=== PATIENT | male | born 1985 | race Caucasian/White ===

== ENCOUNTER 2016-10-13 17:25 | Emergency (ER) | payer OTHER ==
[2016-10-13] MEDS ORDERED: NS 1,000 ML IV ONE (17:45)
[2016-10-13 18:08] VITALS: BP 126/82
[2016-10-13 18:24] LABS: BASO # 0.1 K/mm3 (0.0-0.2); BASO % 0.5 % (0.0-1.0); EOS # 0.3 K/mm3 (0.0-0.50); EOS % 1.5 % (0.0-3.0); LARGE UNSTAINED CELL # 0.2 K/mm3 (0.0-0.4); LARGE UNSTAINED CELL % 1.2 % (0.0-4.0); LYMPH # 2.6 K/mm3 (1.5-4.5); LYMPH % 13.6 % (24.0-44.0); MEAN CORPUSCULAR HEMOGLOBIN 32.8 pg (27.0-33.0); MEAN CORPUSCULAR HGB CONC 34.8 g/dl (32.0-36.5); MEAN CORPUSCULAR VOLUME 94.3 fl (80.0-96.0); MONO % 5.5 % (0.0-5.0); NEUTROPHILS # 13.5 K/mm3 (1.8-7.7); NEUTROPHILS % 77.6 % (36.0-66.0); PLATELET COUNT, AUTOMATED 359 k/mm3 (150-450); RED CELL DISTRIBUTION WIDTH 12.2 % (11.5-14.5); VENOUS BASE EXCESS 4.2 (-2.0-2.0); VENOUS O2 SATURATION 95.3 % (60.0-80.0); VENOUS PARTIAL PRESSURE CO2 19.1 mmHg (38.0-50.0); VENOUS PARTIAL PRESSURE O2 58.7 mmHg (30.0-50.0); VENOUS STANDARD HCO3 28.1 MEQ/L; VENOUS TOTAL CO2 21.8 MEQ/L (24.0-28.0); WHITE BLOOD COUNT 17.4 K/mm3 (4.0-10.0)
[2016-10-13 18:46] LABS: ALBUMIN 4.5 GM/DL (3.2-5.2); ALBUMIN/GLOBULIN RATIO 1.32 (1.00-1.93); ALKALINE PHOSPHATASE 83 U/L (45-117); ALT/SGPT 17 U/L (12-78); ANION GAP 14 MEQ/L (8-16); AST/SGOT 17 U/L (15-37); BILIRUBIN,DIRECT 0.3 MG/DL (0.0-0.2); BILIRUBIN,TOTAL 1.7 MG/DL (0.2-1.0); BLOOD UREA NITROGEN 8 MG/DL (7-18); CALCIUM LEVEL 10.4 MG/DL (8.5-10.1); CARBON DIOXIDE LEVEL 21 MEQ/L (21-32); CHLORIDE LEVEL 105 MEQ/L (98-107); CREATININE FOR GFR 1.27 MG/DL (0.70-1.30); GLOMERULAR FILTRATION RATE > 60.0 (>60); GLUCOSE, FASTING 101 MG/DL (70-105); POTASSIUM SERUM 3.3 MEQ/L (3.5-5.1); SODIUM LEVEL 140 MEQ/L (136-145); TOTAL PROTEIN 7.9 GM/DL (6.4-8.2)
[2016-10-13] MEDS ORDERED: NS 2,250 ML in APPROPRIATE DILUENT 1 EA IV ONE (19:45)
[2016-10-13] MEDS ORDERED: MORPHINE 4 MG/ML 1ML SYRINGE IV ONE (19:45)
[2016-10-13] MEDS ORDERED: ISOVUE-370 76% 100ML VIAL (Q9967) As Ordered ONE (20:00)
--- NOTE | 2016-10-13 20:40 | REPUSA ---
CT of the abdomen and pelvis with contrast Clinical statement: Pain. Technique: Multiple axial CT images were obtained from the base of the lungs through the floor of the pelvis utilizing 5 mm axial slices after administration of nonionic intravenous contrast. Coronal an d sagittal reconstructions were also obtained. Comparison: 03/14/2015. Findings: Chest: The visualized lung bases are clear. Abdomen: The liver, spleen, pancreas, kidneys, gallbladder, and adrenal glands are unremarkable. The aorta is within normal limits. There is no evidence of abdominal lymphadenopathy or ascites. Pelvis: The bowel is unremarkable, with no obstructive or inflammatory changes. The appendix is parker l. The urinary bladder is within normal limits. The other pelvic structures appear grossly intact. Th ere is no evidence of pelvic lymphadenopathy or ascites. Bones: There are no suspicious osseous abnormalities seen. Impression: Unremarkable CT examination of the abdomen and pelvis.
--- NOTE | 2016-10-14 07:37 | REP ---
ABDOMINAL SERIES: Supine and erect views of the abdomen demonstrate no free air and no compelling evidence for obstruction. The air is scattered throughout the GI tract in a nonspecific pattern. I do not see a significantly dilated small bowel loops. No abnormal calcifications are seen. An accompanying view of the chest demonstrates no acute infiltrate. IMPRESSION: Nonspecific bowel gas pattern. No definite free air and no compelling evidence for obstruction. Signed by Morales Faulkner MD 10/14/2016 01:10 P
== END 2016-10-13 21:54 | disposition home or self-care (01) ==
LOC: EDBD 17:25 → M ED 17:25
DX: R10.9 Unspecified abdominal pain (principal); R05 Cough; F17.210 Nicotine dependence, cigarettes, uncomplicated; F10.10 Alcohol abuse, uncomplicated; F14.10 Cocaine abuse, uncomplicated
CPT/HCPCS: 36415; 74022; 74177; 80048; 80076; 82803; 83605; 83690; 85025; 96361; 96374; 99283; Q9967

== ENCOUNTER 2017-01-13 21:00 | Emergency (ER) | payer MEDICAID, OTHER, SELFPAY ==
[~2017-01-13] VITALS: Ht 170.2 cm; Wt 68.0 kg
[2017-01-13 21:52] LABS: MEAN CORPUSCULAR HEMOGLOBIN 33.3 pg (27.0-33.0); MEAN CORPUSCULAR HGB CONC 35.3 g/dl (32.0-36.5); MEAN CORPUSCULAR VOLUME 94.2 fl (80.0-96.0); PLATELET COUNT, AUTOMATED 317 10^3/uL (150-450); RED CELL DISTRIBUTION WIDTH 12.5 % (11.5-14.5); WHITE BLOOD COUNT 7.9 10^3/uL (4.0-10.0)
[2017-01-13 22:20] LABS: METHADONE URINE NEGATIVE (NEGATIVE)
[2017-01-13 22:25] LABS: ALBUMIN 4.1 GM/DL (3.2-5.2); ALBUMIN/GLOBULIN RATIO 1.08 (1.00-1.93); ALKALINE PHOSPHATASE 85 U/L (45-117); ALT/SGPT 22 U/L (12-78); ANION GAP 6 MEQ/L (8-16); AST/SGOT 21 U/L (15-37); BILIRUBIN,DIRECT < 0.1 MG/DL (0.0-0.2); BILIRUBIN,TOTAL 0.4 MG/DL (0.2-1.0); BLOOD UREA NITROGEN 8 MG/DL (7-18); CALCIUM LEVEL 9.1 MG/DL (8.5-10.1); CARBON DIOXIDE LEVEL 29 MEQ/L (21-32); CHLORIDE LEVEL 106 MEQ/L (98-107); CREATININE FOR GFR 0.96 MG/DL (0.70-1.30); GLOMERULAR FILTRATION RATE > 60.0 (>60); GLUCOSE, FASTING 100 MG/DL (70-105); POTASSIUM SERUM 3.8 MEQ/L (3.5-5.1); SODIUM LEVEL 141 MEQ/L (136-145); TOTAL PROTEIN 7.9 GM/DL (6.4-8.2)
[2017-01-13] MEDS ORDERED: LORazepam 1 MG TAB PO STA (22:29)
[2017-01-13] MEDS ORDERED: LORazepam 2 MG/ML VIAL (J2060) IM STA (22:50)
[2017-01-13] MEDS ORDERED: HALOPERIDOL 5 MG/ML VIAL (J1630) IM STA (23:55)
[2017-01-14] MEDS ORDERED: NICOTINE 21MG/24HR 1 EA TRANSDERMAL TD ONE (01:00)
--- NOTE | 2017-01-14 09:35 | ECGEPIP ---
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
[2017-01-14 10:03] VITALS: BP 128/85
== END 2017-01-14 10:07 | disposition home or self-care (01) ==
LOC: M ED 21:00
DX: R45.851 Suicidal ideations (principal); T51.0X2A Toxic effect of ethanol, intentional self-harm, initial encounter; Y92.9 Unspecified place or not applicable; Y93.9 Activity, unspecified; R00.0 Tachycardia, unspecified; F32.9 Major depressive disorder, single episode, unspecified; F17.200 Nicotine dependence, unspecified, uncomplicated; F12.10 Cannabis abuse, uncomplicated
CPT/HCPCS: 80048; 80076; 80307; 84443; 85027; 93005; 96374; 96375; 99285; G0480; J1630; J2060

== ENCOUNTER 2017-02-06 19:32 | Emergency (ER) | payer MEDICAID ==
[~2017-02-06 19:32] MED LIST: HALOPERIDOL 5 MG/ML VIAL (J1630) As Ordered ONE
[2017-02-06] MEDS ORDERED: diphenhydrAMINE INJ 50MG/ML VIAL (J1200) As Ordered ONE (19:33)
[2017-02-06] MEDS ORDERED: HALOPERIDOL 5 MG/ML VIAL (J1630) IM STA (19:37)
[2017-02-06] MEDS ORDERED: diphenhydrAMINE INJ 50MG/ML VIAL (J1200) IM ONE (19:45)
[2017-02-06 21:01] LABS: MEAN CORPUSCULAR HEMOGLOBIN 33.2 pg (27.0-33.0); MEAN CORPUSCULAR HGB CONC 34.3 g/dl (32.0-36.5); MEAN CORPUSCULAR VOLUME 96.7 fl (80.0-96.0); PLATELET COUNT, AUTOMATED 380 10^3/uL (150-450); RED CELL DISTRIBUTION WIDTH 11.9 % (11.5-14.5)
[2017-02-06 21:25] LABS: METHADONE URINE NEGATIVE (NEGATIVE)
[2017-02-06 21:33] LABS: ALBUMIN 3.9 GM/DL (3.2-5.2); ALBUMIN/GLOBULIN RATIO 1.05 (1.00-1.93); ALKALINE PHOSPHATASE 91 U/L (45-117); ALT/SGPT 24 U/L (12-78); ANION GAP 10 MEQ/L (8-16); AST/SGOT 25 U/L (7-37); BILIRUBIN,DIRECT 0.1 MG/DL (0.0-0.2); BILIRUBIN,TOTAL 0.3 MG/DL (0.2-1.0); BLOOD UREA NITROGEN 8 MG/DL (7-18); CALCIUM LEVEL 8.7 MG/DL (8.5-10.1); CARBON DIOXIDE LEVEL 25 MEQ/L (21-32); CHLORIDE LEVEL 108 MEQ/L (98-107); CREATININE FOR GFR 0.78 MG/DL (0.70-1.30); GLOMERULAR FILTRATION RATE > 60.0 (>60); GLUCOSE, FASTING 102 MG/DL (70-105); POTASSIUM SERUM 3.9 MEQ/L (3.5-5.1); SODIUM LEVEL 143 MEQ/L (136-145); TOTAL PROTEIN 7.6 GM/DL (6.4-8.2)
[2017-02-07 08:26] VITALS: BP 137/107
== END 2017-02-07 08:29 | disposition home or self-care (01) ==
LOC: M ED 19:32
DX: F10.129 Alcohol abuse with intoxication, unspecified (principal); F91.9 Conduct disorder, unspecified
CPT/HCPCS: 80048; 80076; 80307; 82550; 84443; 85027; 96372; 99285; G0480; J1200; J1630

== ENCOUNTER 2017-07-14 07:26 | Emergency (ER) | payer MEDICAID ==
[2017-07-14] MEDS: NORCO, ANEXSIA 5/325MG TABLET (HYDROcodone/ACETAMINOPHEN) PO (07:46)
== END 2017-07-14 08:00 | disposition home or self-care (01) ==
LOC: M ED 07:26
DX: K02.9 Dental caries, unspecified (principal); S02.5XXA Fracture of tooth (traumatic), initial encounter for closed fracture; X58.XXXA Exposure to other specified factors, initial encounter; Y92.89 Other specified places as the place of occurrence of the external cause; F17.200 Nicotine dependence, unspecified, uncomplicated; Z88.0 Allergy status to penicillin; Z79.899 Other long term (current) drug therapy
CPT/HCPCS: 99282

== ENCOUNTER 2017-09-20 12:10 | Emergency (ER) | payer OTHER, MEDICAID | END 2017-09-20 13:28 | disposition home or self-care (01) | LOC: M ED 12:10 | DX: K04.7 Periapical abscess without sinus (principal); R68.84 Jaw pain; K08.89 Other specified disorders of teeth and supporting structures; Z72.0 Tobacco use; Z79.899 Other long term (current) drug therapy; Z88.0 Allergy status to penicillin | CPT/HCPCS: 99282 ==

== ENCOUNTER 2017-10-14 12:36 | Emergency (ER) | payer OTHER, MEDICAID ==
[2017-10-14] MEDS: KETOROLAC 60 MG/2 ML VIAL (J1885) IM (15:11)
[2017-10-14] MEDS: ACETAMINOPHEN 325 MG TAB PO (15:11)
== END 2017-10-14 15:17 | disposition home or self-care (01) ==
LOC: M ED 12:36
DX: G89.18 Other acute postprocedural pain (principal); K08.409 Partial loss of teeth, unspecified cause, unspecified class; Z79.899 Other long term (current) drug therapy; Z79.2 Long term (current) use of antibiotics
CPT/HCPCS: J1885

== ENCOUNTER 2017-10-25 09:13 | Emergency (ER) | payer OTHER | END 2017-10-25 09:56 | disposition home or self-care (01) | LOC: M ED 09:13 | DX: K04.7 Periapical abscess without sinus (principal); K02.9 Dental caries, unspecified; K08.89 Other specified disorders of teeth and supporting structures; S02.5XXA Fracture of tooth (traumatic), initial encounter for closed fracture; X58.XXXA Exposure to other specified factors, initial encounter; Y92.9 Unspecified place or not applicable; Y93.9 Activity, unspecified; Y99.9 Unspecified external cause status; Z72.0 Tobacco use; I10 Essential (primary) hypertension; F90.9 Attention-deficit hyperactivity disorder, unspecified type; Z79.899 Other long term (current) drug therapy; Z88.0 Allergy status to penicillin | CPT/HCPCS: 99282 ==

== ENCOUNTER 2018-01-03 15:07 | Emergency (ER) | payer OTHER ==
[2018-01-03] MEDS ORDERED: POTASSIUM CHLORIDE 10 MEQ SR TABLET PO (16:15)
[2018-01-03 16:34] LABS: INFLUENZA A AMPLIFICATION NEGATIVE (NEGATIVE); INFLUENZA B AMPLIFICATION NEGATIVE (NEGATIVE)
[2018-01-03] MEDS: ALBUTEROL SULFATE 2.5 MG/0.5 ML INH NEB SOLN NEB (16:46)
== END 2018-01-03 17:17 | disposition home or self-care (01) ==
LOC: M ED 15:07
DX: J06.9 Acute upper respiratory infection, unspecified (principal); R05 Cough; F17.200 Nicotine dependence, unspecified, uncomplicated
CPT/HCPCS: 94640

== ENCOUNTER 2018-05-17 09:41 | Emergency (ER) | payer OTHER, SELFPAY ==
[~2018-05-17] VITALS: Ht 170.2 cm; Wt 67.7 kg
[~2018-05-17 09:41] MED LIST changes: +ADDE15CA3 PO; +BACT800T5 PO; +CETI10TA PO; +CLEO300C2 PO; +CLIN150C14 PO; +FLON1SPR NARES; -HALOPERIDOL 5 MG/ML VIAL (J1630) As Ordered ONE; +IBUP80TA PO; +MAGICMW MT; +MAPA500T2; +METH1TAB13; +MUCI1TAB18 PO; +NETI1KIT; +NORCOTAB PO; +TRAZ-163 PO; +wellbutrin PO
--- NOTE | 2018-05-17 10:57 | REP ---
Thoracic spine three views: Comparison is 02/16/2005. Vertebral body heights, interspacing alignment are normal. There are no compression deformities or listhesis. The pedicles are unremarkable. Impression: Negative thoracic spine. No interval change. Electronically Signed by Morales Tarango MD 05/17/2018 10:47 A
[2018-05-17] MEDS ORDERED: KETOROLAC 60 MG/2 ML VIAL (J1885) IM ONE (11:00)
[2018-05-17] MEDS ORDERED: CYCLOBENZAPRINE 10 MG TAB PO ONE (11:00)
[2018-05-17] MEDS ORDERED: CYCL10TA PO (11:21)
[2018-05-17] MEDS ORDERED: NAPR-885 PO (11:21)
[2018-05-17 11:29] VITALS: BP 120/71
== END 2018-05-17 11:31 | disposition home or self-care (01) ==
LOC: M ED 09:41
DX: M62.838 Other muscle spasm (principal); I10 Essential (primary) hypertension; F90.9 Attention-deficit hyperactivity disorder, unspecified type; F17.200 Nicotine dependence, unspecified, uncomplicated; Z88.0 Allergy status to penicillin
CPT/HCPCS: 72072; 96372; 99283; J1885

== ENCOUNTER 2019-02-18 21:28 | Emergency (ER) | payer MEDICAID, OTHER ==
[~2019-02-18] VITALS: Ht 167.6 cm; Wt 71.2 kg
[~2019-02-18 21:28] MED LIST changes: +CYCL10TA PO; +HYDR-3715 PO; +NAPR-885 PO; -NORCOTAB PO
[2019-02-18] MEDS ORDERED: SERO1TAB PO (21:41)
[2019-02-18 21:43] VITALS: BP 141/87
[2019-02-18] MEDS ORDERED: TETANUS/DIPHTHERIA TOX ADSORB ADULT 0.5ML SYR/VIAL (90714) IM ONE (21:45)
[2019-02-18 22:07] LABS: BASO # 0.1 10^3/uL (0.0-0.2); BASO % 0.8 % (0.0-1.0); EOS # 0.2 10^3/uL (0.0-0.5); EOS % 1.4 % (0.0-3.0); HEMATOCRIT 48.3 % (42.0-52.0); HEMOGLOBIN 15.7 g/dl (13.5-17.5); LYMPH # 3.5 10^3/uL (1.5-5.0); LYMPH % 25.6 % (24.0-44.0); MEAN CORPUSCULAR HEMOGLOBIN 31.3 pg (27.0-33.0); MEAN CORPUSCULAR HGB CONC 32.5 g/dl (32.0-36.5); MEAN CORPUSCULAR VOLUME 96.2 fl (80.0-96.0); MONO # 1.3 10^3/uL (0.0-0.8); MONO % 9.3 % (0.0-5.0); NEUTROPHILS # 8.4 10^3/uL (1.5-8.5); NEUTROPHILS % 62.6 % (36.0-66.0); PLATELET COUNT, AUTOMATED 462 10^3/uL (150-450); RED BLOOD COUNT 5.02 10^6/uL (4.30-6.10); WHITE BLOOD COUNT 13.5 10^3/uL (4.0-10.0)
[2019-02-18] MEDS ORDERED: ISOVUE-370 76% 100ML VIAL (Q9967) As Ordered ONE (22:07)
[2019-02-18 22:19] LABS: INR 1.02; PROTHROMBIN TIME 13.2 SECONDS (11.8-14.0)
[2019-02-18 22:20] LABS: PARTIAL THROMBOPLASTIN TIME 27.7 SECONDS (25.0-38.4)
[2019-02-18 22:30] LABS: BLOOD UREA NITROGEN 7 MG/DL (7-18); CALCIUM LEVEL 8.7 MG/DL (8.5-10.1); CARBON DIOXIDE LEVEL 32 MEQ/L (21-32); CHLORIDE LEVEL 113 MEQ/L (98-107); CREATININE FOR GFR 1.08 MG/DL (0.70-1.30); ETHYL ALCOHOL (ETHANOL) 0.292 % (0.000-0.010); GLOMERULAR FILTRATION RATE > 60.0 (>60); GLUCOSE, FASTING 90 MG/DL (70-100); POTASSIUM SERUM 3.9 MEQ/L (3.5-5.1); SODIUM LEVEL 148 MEQ/L (136-145)
--- NOTE | 2019-02-19 06:37 | REP ---
Clinical: Trauma. Comparison: 02/25/2016 . Findings: A nasal bone fracture is identified with overlying soft tissue swelling. The ventricles, sulci, and cisterns are normal in position and appearance. Faulkner-white differentiation is maintained. No acute intracranial hemorrhage, mass/mass effect, pathology or trauma/injury. No evidence for acute infarction. No extra-axial fluid collection. Calvarium is intact. Paranasal sinuses and mastoid air cells are clear. Impression: Nasal bone fracture with overlying soft tissue swelling. No evidence for acute intracranial pathology or trauma/injury. Electronically Signed by Bob Lopez MD 02/19/2019 06:29 A
--- NOTE | 2019-02-19 06:41 | REP ---
Clinical: Trauma. Technique: Axial contrast enhanced images from the skull base to the thoracic inlet with coronal and sagittal re-formations using 100 ml Isovue 370 intravenous contrast material. Findings: Images demonstrate nasal bone fractures angulation towards the right side of the face and associated overlying soft tissue swelling. Visualized sinuses are relatively clear. Incidental mucoperiosteal changes and mucocele noted in the right maxillary sinus. Mastoid air cells are clear. The soft tissues through the oropharynx, retropharyngeal space, and hypopharynx are symmetric and normal. There is no evidence for trauma within the neck. There is no mass identified. There is no tonsillar or adenoidal enlargement. There is no abscess identified. The airway is normal. There is no cervical adenopathy. The thyroid is normal. The submandibular and parotid glands are normal. There is no osseous lesion. The lung apices are normal. Impression: 1. Nasal bone fractures identified with angulation to the right and overlying soft tissue swelling. 2. Otherwise normal contrast enhanced CT of the neck. Electronically Signed by Bob Lopez MD 02/19/2019 06:32 A
--- NOTE | 2019-02-19 06:43 | REP ---
Clinical: Trauma. Technique: Axial noncontrast images through the facial bones to include the mandible with coronal and sagittal re-formations. Findings: Bilateral nasal bone fractures are identified with deviation towards the right side and associated overlying soft tissue swelling. Mild chronic sinus disease involving the maxillary sinuses noted including 1 cm right mucocele. Remainder examination appears normal. The osseous structures are otherwise intact and there is no other acute fracture identified. The sinuses and mastoid air cells are all well aerated and clear without fluid level to suggest occult trauma. The bilateral orbits including the globes and intraconal contents appear symmetric and normal. Impression: Nasal bone fractures with deviation to the right. Mild sinus disease. Electronically Signed by Bob Lopez MD 02/19/2019 06:35 A
--- NOTE | 2019-02-19 06:44 | REP ---
Clinical: Trauma. Technique: Axial images from the skull base to the thoracic inlet with coronal and sagittal re-formations. Findings: Mild reversal of normal lordosis is appreciated along with mild/moderate degenerative changes primarily noted at C5-6, C4-5, and C6-7. There is no evidence for acute fracture / compression injury or subluxation. Spinal canal is patent. Posterior elements and spinous processes are intact. Surrounding soft tissues are unremarkable. Impression: Degenerative changes centered at C5-6. No evidence for acute trauma/injury. Electronically Signed by Bob Lopez MD 02/19/2019 06:36 A
[2019-02-19] MEDS ORDERED: BACT800T5 PO (11:25)
== END 2019-02-18 22:43 | disposition home or self-care (01) ==
LOC: M ED 21:28
DX: S01.81XA Laceration without foreign body of other part of head, initial encounter (principal); S02.2XXA Fracture of nasal bones, initial encounter for closed fracture; F10.129 Alcohol abuse with intoxication, unspecified; X58.XXXA Exposure to other specified factors, initial encounter; Y92.9 Unspecified place or not applicable; Y93.9 Activity, unspecified; Y99.9 Unspecified external cause status; F90.9 Attention-deficit hyperactivity disorder, unspecified type; F17.200 Nicotine dependence, unspecified, uncomplicated; M50.322 Other cervical disc degeneration at C5-C6 level; Z79.899 Other long term (current) drug therapy; Z88.0 Allergy status to penicillin; Z53.21 Procedure and treatment not carried out due to patient leaving prior to being seen by health care provider
CPT/HCPCS: 70450; 70486; 70491; 72125; 80048; 85025; 85610; 85730; 90471; 90714; 99284; G0480; Q9967

== ENCOUNTER 2019-02-19 09:04 | Emergency (ER) | payer MEDICAID, OTHER ==
[~2019-02-19] VITALS: Ht 167.6 cm; Wt 71.4 kg
[~2019-02-19 09:04] MED LIST changes: +SERO1TAB PO
[2019-02-19] MEDS ORDERED: ADACEL/BOOSTRIX VACCINE (DIPHTH/PERTUSS/ACELL/TETANUS)0.5ML SYR (90715) IM ONE (09:30)
[2019-02-19] MEDS ORDERED: ACETAMINOPHEN 500 MG TAB PO ONE (09:45)
[2019-02-19] MEDS ORDERED: BACT800T5 PO (11:25)
[2019-02-19 11:38] VITALS: BP 148/70
== END 2019-02-19 11:39 | disposition home or self-care (01) ==
LOC: M ED 09:04
DX: S02.2XXA Fracture of nasal bones, initial encounter for closed fracture (principal); S06.0X0A Concussion without loss of consciousness, initial encounter; W22.01XA Walked into wall, initial encounter; Y92.89 Other specified places as the place of occurrence of the external cause; Y93.9 Activity, unspecified; Y99.9 Unspecified external cause status; I10 Essential (primary) hypertension; F17.200 Nicotine dependence, unspecified, uncomplicated; Z79.899 Other long term (current) drug therapy; Z88.0 Allergy status to penicillin

== ENCOUNTER → 2019-03-23 | Outpatient (CLI) | payer OTHER, SELFPAY | LOC: M OUTALCOH 08:04 | PROVIDERS: ATTEND Psychiatry & Neurology Psychiatry | DX: F15.20 Other stimulant dependence, uncomplicated (principal); F12.20 Cannabis dependence, uncomplicated ==

== ENCOUNTER 2019-04-22 10:00 | Outpatient (RCR) | payer OTHER ==
[~2019-04-22 10:00] MED LIST changes: -TRAZ-163 PO; +TRAZ-257 PO
== END 2019-04-23 ==
LOC: M OUTALCOH 10:00
PROVIDERS: ATTEND Psychiatry & Neurology Psychiatry
DX: F15.20 Other stimulant dependence, uncomplicated (principal); F12.10 Cannabis abuse, uncomplicated

== ENCOUNTER 2019-05-19 15:00 | Outpatient (RCR) | payer OTHER | END 2019-05-22 | LOC: M OUTALCOH 15:00 | PROVIDERS: ATTEND Psychiatry & Neurology Addiction Medicine | DX: F15.20 Other stimulant dependence, uncomplicated (principal); F12.10 Cannabis abuse, uncomplicated ==

== ENCOUNTER 2019-06-15 14:00 | Outpatient (RCR) | payer MEDICAID, OTHER | END 2019-06-22 | LOC: M OUTALCOH 14:00 | PROVIDERS: ATTEND Psychiatry & Neurology Addiction Medicine | DX: F15.20 Other stimulant dependence, uncomplicated (principal); F12.10 Cannabis abuse, uncomplicated ==

== ENCOUNTER 2019-10-02 19:19 | Emergency (ER) | payer MEDICAID, OTHER ==
[~2019-10-02 19:19] MED LIST changes: +CYCL-707 PO; -CYCL10TA PO
[2019-10-02] MEDS: LORazepam 2 MG/ML VIAL IV STA ×2 (19:23→19:45)
[2019-10-02] MEDS ORDERED: NS 1,000 ML IV ONE ×2 (19:30→23:45)
[2019-10-02 19:38] LABS: HEMATOCRIT 46.6 % (42.0-52.0); HEMOGLOBIN 15.8 g/dl (13.5-17.5); MEAN CORPUSCULAR HEMOGLOBIN 30.8 pg (27.0-33.0); MEAN CORPUSCULAR HGB CONC 33.9 g/dl (32.0-36.5); MEAN CORPUSCULAR VOLUME 90.8 fl (80.0-96.0); PLATELET COUNT, AUTOMATED 358 10^3/uL (150-450); RED BLOOD COUNT 5.13 10^6/uL (4.30-6.10); WHITE BLOOD COUNT 12.1 10^3/uL (4.0-10.0)
[2019-10-02] MEDS ORDERED: LORazepam 2 MG/ML VIAL As Ordered ONE (19:42)
[2019-10-02 20:11] LABS: ACETAMINOPHEN LEVEL < 2.0 UG/ML (10.0-30.0); ALBUMIN 4.2 GM/DL (3.2-5.2); ALT/SGPT 31 U/L (12-78); BILIRUBIN,DIRECT 0.4 MG/DL (0.0-0.2); BILIRUBIN,TOTAL 1.6 MG/DL (0.2-1.0); BLOOD UREA NITROGEN 18 MG/DL (7-18); CARBON DIOXIDE LEVEL 28 MEQ/L (21-32); CHLORIDE LEVEL 104 MEQ/L (98-107); CREATININE FOR GFR 1.16 MG/DL (0.70-1.30); ETHYL ALCOHOL (ETHANOL) < 0.003 % (0.000-0.010); GLOMERULAR FILTRATION RATE > 60.0 (>60); GLUCOSE, FASTING 97 MG/DL (70-100); POTASSIUM SERUM 3.4 MEQ/L (3.5-5.1); SALICYLATE LEVEL 2.5 MG/DL (5.0-30.0); SODIUM LEVEL 141 MEQ/L (136-145); THYROID STIMULATING HORMONE 0.545 uIU/ML (0.358-3.740); TOTAL PROTEIN 7.9 GM/DL (6.4-8.2)
[2019-10-02 20:21] LABS: AMPHETAMINES LEVEL URINE POSITIVE (NEGATIVE); BARBITURATES URINE NEGATIVE (NEGATIVE); BENZODIAZEPINES URINE NEGATIVE (NEGATIVE); CANNABINOIDS URINE POSITIVE (NEGATIVE); COCAINE METABOLITE URINE NEGATIVE (NEGATIVE); METHADONE URINE NEGATIVE (NEGATIVE); OPIATES URINE NEGATIVE (NEGATIVE); PHENCYCLIDINE URINE NEGATIVE (NEGATIVE)
[2019-10-03 06:30] VITALS: BP 113/81
== END 2019-10-03 06:57 | disposition home or self-care (01) ==
LOC: M ED 19:19
DX: F15.20 Other stimulant dependence, uncomplicated (principal); Z72.0 Tobacco use; Z79.899 Other long term (current) drug therapy; Z88.0 Allergy status to penicillin
CPT/HCPCS: 51701; 80048; 80076; 80307; 84443; 85027; 96360; 96361; 99285; G0480

== ENCOUNTER 2019-11-16 11:25 | Emergency (ER) | payer OTHER ==
[~2019-11-16] VITALS: Ht 167.6 cm; Wt 64.1 kg
[2019-11-16 11:26] VITALS: BP 103/70
[2019-11-16] MEDS ORDERED: ALBUTEROL 90 MCG/ACT 8GM HFA INHALER INH ONE (12:30)
[2019-11-16 12:55] LABS: BASO # 0.1 10^3/uL (0.0-0.2); BASO % 0.5 % (0.0-1.0); EOS # 0.1 10^3/uL (0.0-0.5); EOS % 1.3 % (0.0-3.0); HEMATOCRIT 48.7 % (42.0-52.0); HEMOGLOBIN 16.7 g/dl (13.5-17.5); LYMPH # 2.6 10^3/uL (1.5-5.0); LYMPH % 27.6 % (24.0-44.0); MEAN CORPUSCULAR HEMOGLOBIN 32.2 pg (27.0-33.0); MEAN CORPUSCULAR HGB CONC 34.3 g/dl (32.0-36.5); MONO # 1.2 10^3/uL (0.0-0.8); MONO % 12.8 % (0.0-5.0); NEUTROPHILS # 5.3 10^3/uL (1.5-8.5); NEUTROPHILS % 57.6 % (36.0-66.0); PLATELET COUNT, AUTOMATED 446 10^3/uL (150-450); RED BLOOD COUNT 5.18 10^6/uL (4.30-6.10); WHITE BLOOD COUNT 9.2 10^3/uL (4.0-10.0)
[2019-11-16 13:30] LABS: ALBUMIN 4.2 GM/DL (3.2-5.2); BILIRUBIN,DIRECT 0.2 MG/DL (0.0-0.2); BILIRUBIN,TOTAL 0.7 MG/DL (0.2-1.0); TOTAL PROTEIN 7.9 GM/DL (6.4-8.2)
--- NOTE | 2019-12-05 17:27 | ECGEPIP ---
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
== END 2019-11-16 13:55 | disposition left against medical advice (07) ==
LOC: M ED 11:25
DX: R06.02 Shortness of breath (principal); Z53.21 Procedure and treatment not carried out due to patient leaving prior to being seen by health care provider; I10 Essential (primary) hypertension; F90.9 Attention-deficit hyperactivity disorder, unspecified type; F17.200 Nicotine dependence, unspecified, uncomplicated; F12.10 Cannabis abuse, uncomplicated; Z88.0 Allergy status to penicillin

== ENCOUNTER 2020-02-15 10:46 | Emergency (ER) | payer OTHER ==
[~2020-02-15] VITALS: Ht 167.6 cm; Wt 65.1 kg
[2020-02-15 10:47] VITALS: BP 119/77
[2020-02-15] MEDS ORDERED: PEPC10TA6 PO (11:39)
[2020-02-15] MEDS ORDERED: TUMS500C PO (11:40)
[2020-02-15] MEDS ORDERED: LIDOCAINE 2% W/ EPINEPHRINE 1.7 ML DENTAL INJ SM ONE (12:15)
[2020-02-15 12:35] LABS: BASO # 0.1 10^3/uL (0.0-0.2); BASO % 0.8 % (0.0-1.0); EOS # 0.3 10^3/uL (0.0-0.5); EOS % 3.6 % (0.0-3.0); HEMATOCRIT 43.8 % (42.0-52.0); HEMOGLOBIN 14.5 g/dl (13.5-17.5); LYMPH # 2.5 10^3/uL (1.5-5.0); LYMPH % 28.7 % (24.0-44.0); MEAN CORPUSCULAR HEMOGLOBIN 30.8 pg (27.0-33.0); MEAN CORPUSCULAR HGB CONC 33.1 g/dl (32.0-36.5); MONO # 0.9 10^3/uL (0.0-0.8); MONO % 10.9 % (0.0-5.0); NEUTROPHILS # 4.8 10^3/uL (1.5-8.5); NEUTROPHILS % 55.8 % (36.0-66.0); PLATELET COUNT, AUTOMATED 337 10^3/uL (150-450); RED BLOOD COUNT 4.71 10^6/uL (4.30-6.10); WHITE BLOOD COUNT 8.6 10^3/uL (4.0-10.0)
[2020-02-15] MEDS ORDERED: GI COCKTAIL 50ML BTL(HYOSCYAMINE/MAALOX/LIDOCAINE VISCOUS)(1:3:1) PO ONE (12:45)
[2020-02-15 12:58] LABS: ALBUMIN 3.6 GM/DL (3.2-5.2); ALT/SGPT 48 U/L (12-78); BILIRUBIN,DIRECT < 0.1 MG/DL (0.0-0.2); BILIRUBIN,TOTAL 0.3 MG/DL (0.2-1.0); LIPASE 610 U/L (73-393); TOTAL PROTEIN 6.7 GM/DL (6.4-8.2)
[2020-02-15] MEDS ORDERED: NS 1,000 ML IV ONE (13:15)
[2020-02-15] MEDS ORDERED: ISOVUE-370 76% 100ML VIAL As Ordered ONE (13:15)
--- NOTE | 2020-02-15 14:01 | REP ---
INDICATION: LUQ pain, elevated lipase. COMPARISON: 10/13/2016 TECHNIQUE: Axial contrast-enhanced images from the lung bases to the pubic symphysis using 100 cc Isovue 370 intravenous contrast material. Coronal and sagittal reformations obtained. This CT examination was performed using the following dose reduction techniques: Automated exposure control, adjustment of mA and/or kv according to the patient's size, and the use of iterative reconstruction technique. FINDINGS: Liver demonstrates mild fatty infiltration without focal hepatic lesion. Spleen, pancreas, gallbladder, bilateral adrenal glands and kidneys are normal. The enteric system including stomach, small, and large bowel appears normal. No evidence for obstruction or acute inflammatory process. Normal terminal ileum and appendix are identified in the right lower quadrant. Pelvis demonstrates normal bladder and age-appropriate prostate/seminal vesicles. No ascites. No free air. No intraperitoneal or retroperitoneal adenopathy. Abdominal aorta and vasculature appear normal. Musculoskeletal structures are intact and without acute osseous abnormality. IMPRESSION: No acute abdominopelvic pathology appreciated. Hepatosteatosis suggested. <Electronically signed by Bob Lopez > 02/15/20 [id number]
== END 2020-02-15 13:49 | disposition left against medical advice (07) ==
LOC: M ED 10:46
DX: Z53.9 Procedure and treatment not carried out, unspecified reason (principal); R10.9 Unspecified abdominal pain; R11.10 Vomiting, unspecified; R19.7 Diarrhea, unspecified; K08.89 Other specified disorders of teeth and supporting structures; I10 Essential (primary) hypertension; K27.9 Peptic ulcer, site unspecified, unspecified as acute or chronic, without hemorrhage or perforation; F17.200 Nicotine dependence, unspecified, uncomplicated; Z88.0 Allergy status to penicillin
CPT/HCPCS: 36415; 64400; 74177; 80047; 80076; 83690; 85025; 99284; Q9967

== ENCOUNTER 2020-04-11 01:37 | Emergency (ER) | payer OTHER ==
[~2020-04-11] VITALS: Ht 167.6 cm; Wt 61.3 kg
[~2020-04-11 01:37] MED LIST changes: -CLIN150C14 PO; +CLIN150C15 PO; +PEPC10TA6 PO; +TUMS500C PO
--- OUTSIDE RECORDS SUMMARY | 2020-04-11 01:47 | CCD ---
Author Author [facility] Organization [facility] Address Unknown Phone Unavailable Care Team Providers Care Grizzly Worker Name Role Phone Juan Miguel, A Radha [employer] Unavailable Unavailable Juan Miguel, A Radha [employer] Unavailable Unavailable Juan Miguel, A Radha [employer] Unavailable Unavailable Juan Miguel, A Radha [employer] Unavailable Unavailable Juan Miguel, A Radha [employer] Unavailable Unavailable Juan Miguel, A Radha [employer] Unavailable Unavailable Juan Miguel, A Radha [employer] Unavailable Unavailable Juan Miguel, A Radha [employer] Unavailable Unavailable Juan Miguel, A Radha [employer] Unavailable Unavailable Juan Miguel, A Radha [employer]AN Unavailable Unavailable Juan Miguel, A Radha [employer]AN Unavailable Unavailable Juan Miguel, A Radha [employer]AN Unavailable Unavailable Juan Miguel, A Radha [employer]AN Unavailable Unavailable Juan Miguel, A Radha [employer]AN Unavailable Unavailable Juan Miguel, A Radha [employer]AN Unavailable Unavailable Juan Miguel, A Radha [employer]AN Unavailable Unavailable Juan Miguel, A Radha [employer] Unavailable Unavailable Juan Miguel, A Radha [employer]AN Unavailable Unavailable Juan Miguel, A Radha [employer] Unavailable Unavailable Juan Miguel, A Radha [employer]AN Unavailable Unavailable Juan Miguel, A Radha [employer]AN Unavailable Unavailable Juan Miguel, A Radha [employer] Unavailable Unavailable Juan Miguel, A Radha [employer] Unavailable Unavailable Juan Miguel, A Radha [employer] Unavailable Unavailable Juan Miguel, A Radha [employer] Unavailable Unavailable Juan Miguel, A Radha [employer] Unavailable Unavailable Juan Miguel, A Radha [employer] Unavailable Unavailable Mi, Nadia [employer] [employer] [facility] Unavailable Unavailable Amyot, Sameer Unavailable Whipple, Phuong Unavailable [place], C Laz Unavailable Unavailable Dylan, C Laz Unavailable Unavailable [place], C Laz Unavailable Unavailable Dylan, C Laz Unavailable Unavailable [place], C Laz Unavailable Unavailable Dylan, C Laz Unavailable Unavailable [place], C Laz Unavailable Unavailable [place], Anthony Unavailable Im, F Nadia [employer] [facility]-BC Unavailable Unavailable Mi, F Nadia [employer]-BC Unavailable Unavailable Mi, F Nadia [employer] [facility]-BC Unavailable Unavailable Mi, F Nadia [employer] [facility]-BC Unavailable Unavailable Mi, F Nadia [employer] [facility]-BC Unavailable Unavailable Mi, F Nadia [employer] [place]-BC Unavailable Unavailable Mi, F Nadia [employer] [facility]-BC Unavailable Unavailable Mi, F Nadia [employer] [facility]-BC Unavailable Unavailable Mi, F Nadia [employer] [facility]-BC Unavailable Unavailable Mi, F Nadia [employer] [facility]-BC Unavailable Unavailable Mi, F Nadia [employer] [facility]-BC Unavailable Unavailable Mi, F Nadia [employer] [facility]-BC Unavailable Unavailable Mi, F Nadia [employer] [facility]-BC Unavailable Unavailable Mi, F Nadia [employer] [facility]-BC Unavailable Unavailable Mi, F Nadia [employer] [facility]-BC Unavailable Unavailable Mi, F Nadia [employer] [facility]-BC Unavailable Unavailable Mi, F Nadia [employer] [facility]-BC Unavailable Unavailable Mi, F Nadia [employer] [facility]-BC Unavailable Unavailable Mi, F Nadia [employer] [facility]-BC Unavailable Unavailable Mi, F Nadia [employer] [facility]-BC Unavailable Unavailable Mi, F Nadia [employer] [facility]-BC Unavailable Unavailable Mi, F Nadia [employer] [facility]-BC Unavailable Unavailable Juan Miguel, Radha [employer] [employer] [facility] Unavailable Unavailable BartAshly flower Phil [employer] Unavailable Unavailable BarterAshly Phil [employer] Unavailable Unavailable Barter D Phil [employer] Unavailable Unavailable Barter, D Phil [employer] Unavailable Unavailable Barter, D Phil [employer]AN Unavailable Unavailable Barter, D Phil [employer]AN Unavailable Unavailable Barter, D Phil [employer]AN Unavailable Unavailable Barter, D Phil [employer]AN Unavailable Unavailable Barter, D Phil [employer]AN Unavailable Unavailable Barter, D Phil [employer] Unavailable Unavailable Barter, D Phil [employer]AN Unavailable Unavailable Barter, D Phil [employer] Unavailable Unavailable Barter, D Phil [employer]AN Unavailable Unavailable Barter, D Phil [employer] Unavailable Unavailable Barter, D Phil [employer] Unavailable Unavailable Barter, D Phil [employer]AN Unavailable Unavailable Barter, D Phil [employer] Unavailable Unavailable Barter, D Phil [employer]AN Unavailable Unavailable Barter, D Phil [employer]AN Unavailable Unavailable Barter, D Phil [employer] [facility] Unavailable Unavailable Barter, D Phil [employer]AN Unavailable Unavailable Barter, D Phil [employer]AN Unavailable Unavailable Barter, D Phil [employer]AN Unavailable Unavailable Barter, D Phil [employer]AN Unavailable Unavailable Barter, D Phil [employer] Unavailable Unavailable Barter, D Phil [employer] Unavailable Unavailable Barter, D Phil [employer] Unavailable Unavailable Barter, D Phil [employer]AN Unavailable Unavailable Barter, D Phil [employer]AN Unavailable Unavailable Barter, D Phil [employer]AN Unavailable Unavailable Barter, D Phil [employer] [facility]AN Unavailable Unavailable Barter, D Phil [employer] [facility]AN Unavailable Unavailable Barter, D Phil [employer] DEAN Unavailable Unavailable Barter, D Phil [employer]AN Unavailable Unavailable Barter, D Phil [employer] DEAN Unavailable Unavailable Barter, D Phil [employer] DEAN Unavailable Unavailable Barter, D Phil [employer] DEAN Unavailable Unavailable Barter, D Phil [employer]AN Unavailable Unavailable Barter, D Phil [employer] DEAN Unavailable Unavailable Barter, D Phil [employer] [facility]AN Unavailable Unavailable Barter, D Phil [employer] DEAN Unavailable Unavailable Barter, D Phil [employer] [facility]AN Unavailable Unavailable Barter, D Phil [employer] [facility]AN Unavailable Unavailable Barter, D Phil [employer] DEAN Unavailable Unavailable Barter, D Phil [employer] DEAN Unavailable Unavailable Barter, D Phil [employer]AN Unavailable Unavailable Barter, D Phil [employer] DEAN Unavailable Unavailable Barter, D Phil [employer]AN Unavailable Unavailable Barter, D Phil [employer]AN Unavailable Unavailable Barter, D Phil [employer]AN Unavailable Unavailable Barter, D Phil [employer] Unavailable Unavailable Barter, D Phil [employer]AN Unavailable Unavailable Barter, D Phil [employer] Unavailable Unavailable Barter, D Phil [employer] Unavailable Unavailable LETTIERE, A DARRICK PA Unavailable Unavailable LETTIERE, A DARRICK PA Unavailable Unavailable LETTIERE, A DARRICK PA Unavailable Unavailable LETTIERE, A DARRICK PA Unavailable Unavailable LETTIERE, A DARRICK PA Unavailable Unavailable LETTIERE, A DARRICK PA Unavailable Unavailable LETTIERE, A DARRICK PA Unavailable Unavailable LETTIERE, A DARRICK PA Unavailable Unavailable LETTIERE, A DARRICK PA Unavailable Unavailable LETTIERE, A DARRICK PA Unavailable Unavailable LETTIERE, A DARRICK PA Unavailable Unavailable LETTIERE, A DARRICK PA Unavailable Unavailable LETTIERE, A DARRICK PA Unavailable Unavailable LETTIERE, A DARRICK PA Unavailable Unavailable LETTIERE, A DARRICK PA Unavailable Unavailable LETTIERE, A DARRICK PA Unavailable Unavailable LETTIERE, A DARRICK PA Unavailable Unavailable LETTIERE, A DARRICK PA Unavailable Unavailable LETTIERE, A DARRICK PA Unavailable Unavailable LETTIERE, A DARRICK PA Unavailable Unavailable LETTIERE, A DARRICK PA Unavailable Unavailable LETTIERE, A DARRICK PA Unavailable Unavailable LETTIERE, A DARRICK PA Unavailable Unavailable LETTIERE, A DARRICK PA Unavailable Unavailable LETTIERE, A DARRICK PA Unavailable Unavailable LETTIERE, A DARRICK PA Unavailable Unavailable LETTIERE, A DARRICK PA Unavailable Unavailable LETTIERE, A DARRICK PA Unavailable Unavailable LETTIERE, A DARRICK PA Unavailable Unavailable Re-disclosure Warning The records that you are about to access may contain information from federally-assisted alcohol or drug abuse programs. If such information is present, then the following federally mandated warning applies: This information has been disclosed to you from records protected by federal confidentiality rules (42 CFR part 2). The federal rules prohibit you from making any further disclosure of this information unless further disclosure is expressly permitted by the written consent of the person to whom it pertains or as otherwise permitted by 42 CFR part 2. A general authorization for the release of medical or other information is NOT sufficient for this purpose. The Federal rules restrict any use of the information to criminally investigate or prosecute any alcohol or drug abuse patient.The records that you are about to access may contain highly sensitive health information, the redisclosure of which is protected by Article 27-F of the [facility] Public Health law. If you continue you may have access to information: Regarding HIV / AIDS; Provided by facilities licensed or operated by the [facility] Office of Mental Health; or Provided by the [facility] Office for People With Developmental Disabilities. If such information is present, then the following [facility] mandated warning applies: This information has been disclosed to you from confidential records which are protected by state law. State law prohibits you from making any further disclosure of this information without the specific written consent of the person to whom it pertains, or as otherwise permitted by law. Any unauthorized further disclosure in violation of state law may result in a fine or chcf sentence or both. A general authorization for the release of medical or other information is NOT sufficient authorization for further disc losure. Allergies and Adverse Reactions Type Description Substance Reaction Status Data Source(s ) Propensity to adverse reactions to substance methylphenidate hcl 24 HR Methylphenidate Hydrochloride 18 MG Extended Release Oral Tablet Active [facility] ([facility]) Propensity to adverse reactions to substance bupropion hcl 24 HR Bupropion Hydrochloride 150 MG Extended Release Oral Tablet Active [facility] ([facility]) Propensity to adverse reactions to substance atomoxetine atomoxetine 40 MG Oral Capsule Active [facility] ([facility]) Propensity to adverse reactions to substance methylphenidate hcl 24 HR Methylphenidate Hydrochloride 18 MG Extended Release Oral Tablet Active [facility] ([facility]) Propensity to adverse reactions to substance bupropion hcl 24 HR Bupropion Hydrochloride 150 MG Extended Release Oral Tablet Active [facility] ([facility]) Encounters Encounter Providers Location Date Indications Data Source(s ) Outpatient Attender: Radha MADRIGAL 12/12/2019 02:4 9:03 PM EDT [facility] Outpatient Attender: ANKIT MADRIGAL 12/12/2019 02:49:01 P M EDT [facility] Outpatient Attender: ANKIT MADRIGAL 11/12/2019 12:02:26 A M EDT [facility] Outpatient Attender: ANKIT MADRIGAL 11/11/2019 02:10:00 P M EDT [facility] Outpatient Attender: ANKIT MADRIGAL 11/11/2019 02:08:01 P M EDT [facility] Outpatient Attender: ANKIT MADRIGAL 11/11/2019 11:46:00 A M EDT [facility] Outpatient Attender: ANKIT MADRIGAL 11/11/2019 11:30:01 AM EDT [facility] Outpatient Attender: DARRICK gonsalez 10/18/2019 01:50:00 PM EDT [facility]) Outpatient Attender: ANKIT MADRIGAL 08/31/2019 07:53:14 PM EDT [facility] Extended Individual Psychotherapy - 45 min Attender: Mandeep Elder [facility] 06/08/2019 09:45:00 AM EDT - 06/08/2019 09:45:00 AM EDT [facility] ([facility]) Attender: Anthony Elder 06/08/2019 12:00:00 AM EDT [facility] Outpatient Attender: ANKIT MADRIGAL 05/05/2019 07:38:01 AM [facility] Outpatient Attender: ANKIT MADRIGAL 04/23/2019 09:01:09 PM [facility] Outpatient Attender: Nadia MADRIGAL 04/23/2019 03: 50:01 PM [facility] Outpatient Attender: ANKIT MADRIGAL 04/23/2019 02:30:02 PM [facility] Outpatient Attender: ANKIT MADRIGAL 04/23/2019 02:28:00 PM [facility] Outpatient Attender: ANKIT MADRIGAL 04/23/2019 02:15:01 PM [facility] Brief Individual Psychotherapy - 30 min Attender: Anthony miranda [facility] 04/21/2019 09:45:00 AM EST - 04/21/2019 09:45:00 AM EST [facility] ([facility]) Attender: Anthonysilver Elder 04/21/2019 12:00:00 AM EST [facility] ([facility]) Outpatient Attender: ANKIT MADRIGAL 04/16/2019 09:29:38 AM [facility] Outpatient Attender: ANKIT MADRIGAL 04/12/2019 11:34:01 AM [facility] Outpatient Attender: Nadia MADRIGAL 04/12/2019 11: 33:01 AM [facility] Outpatient Attender: ANKIT MADRIGAL 04/12/2019 11:32:01 AM [facility] Outpatient Attender: Laz Dylan [facility] 0 04/12/2019 03:00:00 AM EST - 04/12/2019 03:00:00 AM EST [facility] ([facility]) Attender: Laz Richardson 04/12/2019 12:00:00 AM EST [facility] ([facility]) Extended Individual Psychotherapy - 45 min [facility] 03/31/2019 10:15:00 AM EST - 03/31/2019 10:15:00 AM EST [facility] ([facility]) Attender: [facility] 03/31/2019 12:00:00 AM EST [facility] ([facility]) Outpatient Attender: Laz [place] [facility] 0 03/25/2019 10:00:00 AM EST - 03/25/2019 10:00:00 AM EST [facility] ([facility] Attender: Laz Richardson 03/25/2019 12:00:00 AM EST [facility] ([facility]) Extended Individual Psychotherapy - 45 min Attender: Mandeep oliva [facility] 03/23/2019 01:45:00 AM EST - 03/23/2019 01:45:00 AM EST [facility] ([facility]) [facility] 03/23/2019 12:00:00 AM EST [facility] ([facility]) Psychiatric Diagnostic Evaluation (Non-Medical) Attender: Alejandra castro [facility] 03/08/2019 11:00:00 AM EST - 03/08/2019 11:00:00 AM EST [facility] ([facility]) Health Monitoring - 15 Min Attender: Phuong Whipple [facility] 03/08/2019 10:30:00 AM EST - 03/08/2019 10:30:00 AM EST [facility] ([facility]) Attender: Phuong Whipple 03/08/2019 12:00:00 AM EST [facility] ([facility]) Attender: Anthony [facility] 03/08/2019 12:00:00 AM EST [facility] ([facility]) Outpatient Referrer: Phil Fall [employer] [facility] 03/04/2019 09:36:00 P M EST [facility] Extended Individual Psychotherapy - 45 min Attender: Lam Perez [facility] 02/24/2019 02:30:00 AM EST - 02/24/2019 02:30:00 AM EST [facility] ([facility]) Attender: Sameer Perez 02/24/2019 12:00:[address] [facility] ([facility]) Functional Status Medications Medication Brand Name Start Date Product Form Dose Route Admi nistrative Instructions Pharmacy Instructions Status Indications Reaction Description Data Source(s) 200 ACTUAT Albuterol 0.09 MG/ACTUAT Metered Dose Inhaler [Pr oAir] Proair HFA 10/18/2019 12:00:00 AM EDT RESPIRATORY active [facility] ([facility]) Prednisone 20 MG Oral Tablet Prednisone 10/18/2019 12:00:00 AM EDT active [facility] ([facility]) Azithromycin 250 MG Oral Tablet Azithromycin 10/18/2019 12:00:00 AM EDT active [facility] ([facility]) No Active Medications 10/18/2019 12:00:00 AM EDT completed [facility] ([facility]) 15 mg 04/13/2019 12:00:00 AM EST capsule,extended releas e 24hr 30 TAKE ONE CAPSULE BY MOUTH EVERY MORNING MAXIMUM DAILY DOSE = 1 CAPSULE TAKE ONE CAPSULE BY MOUTH EVERY MORNING MAXIMUM DAILY DOSE = 1 CAPSULE SOLD: 04/13/2019 [facility] 24 HR Amphetamine aspartate 3.75 MG / Am phetamine Sulfate 3.75 MG / Dextroamphetamine saccharate 3.75 MG / Dextroamphetamine Sulfate 3.75 MG Extended Release Oral Capsule [Adderall] Adderall XR 04/12/2019 12:00:00 AM EST 15 mg by mouth completed [id number] Adderall XR by [facility] [id number] 04/12/2019 05/12/2019 every morning 30 15 mg capsule,extended release 24h r [id number] Laz Richardson [id number] Psychiatric/Mental Health [facility] ([facility]) 40 mg 03/26/2019 12:00:00 AM EST capsule 30 TAKE ONE CAPSULE BY MOUTH EVERY MORNING TAKE ONE CAPSULE BY MOUTH EVERY MORNING SOLD: 03/27/2019 [facility] 24 HR Guanfacine 2 MG Extended Release Oral Tablet [Intuniv] Intuniv ER 03/25/2019 12:00:00 AM EST 2 mg by mouth completed [id number] Intuniv ER by mouth [id number] 03/25/2019 05/24/2019 at bedtime 30 2 mg tablet extended release 24 hr [id number] Laz Richardson [id number] Ps ychiatric/Mental Health [facility] ([facility]) Trazodone Hydrochloride 150 MG Oral Tablet trazodone 03/25 12:00:00 AM EST 150 mg completed [id number] trazodone 201906/11/2019 at bedtime 30 150 mg tablet 77223 [id number] Laz Richardson 3 [id number] Psychiatric/Mental Health [facility] ([facility]) 24 HR Guanfacine 2 MG Extended Release Oral Tablet [Intuniv] [facility]univ ER 03/25/2019 12:00:00 AM EST 2 mg by mouth completed [id number] [facility] ER by mouth [id number] 03/25/2019 05/24/2019 at bedtime 30 2 mg tablet extended release 24 hr [id number] [id number] Laz Richardson [id number] Ps hiatric/Mental Health [facility] ([facility]) 150 mg 03/25/2019 12:00:00 AM EST tablet 30 TAKE ONE TABLET BY MOUTH AT BEDTIME TAKE ONE TABLET BY MOUTH AT BEDTIME SOLD: 03/26/2019 [facility] Trazodone Hydrochloride 150 MG Oral Tablet trazodone 03/25 12:00:00 AM EST 150 mg completed [id number] trazodone 201906/11/2019 at bedtime 30 150 mg tablet 40552 [id number] Laz Richardson 3 [id number] Psychiatric/Mental Health [facility] ([facility]) Trazodone Hydrochloride 150 MG Oral Tablet trazodone 03/25 12:00:00 AM EST 150 mg completed [id number] trazodone 201906/11/2019 at bedtime 30 150 mg tablet 25599 226411 [id number] Laz Richardson 3 [id number] Psychiatric/Mental Health [facility] ([facility]) atomoxetine 40 MG Oral Capsule atomoxetine 03/25/2019 12:00:00 AM EST 40 mg by mouth completed [id number] atomoxetine by mouth [id number] 04/201905/24/2019 every morning 30 40 mg capsule 12121 [id number] Laz Richardson [id number] Psychiatric/Mental Health [facility] ([facility]) 24 HR Guanfacine 2 MG Extended Release Oral Tablet GUANFACIN E HCL 03/25/2019 12:00:00 AM EST tablet extended release 24 hr 30 TA KE ONE TABLET BY MOUTH AT BEDTIME TAKE ONE TABLET BY MOUTH AT BEDTIME SOLD: 03/26/2019 [facility] 24 HR Guanfacine 2 MG Extended Release Oral Tablet [Intuniv] Intuniv ER 03/25/2019 12:00:00 AM EST 2 mg by mouth completed [id number] Intuniv ER by mouth [id number] 03/25/2019 05/24/2019 at bedtime 30 2 mg tablet extended release 24 hr 76410 327148 [id number] Laz Richardson [id number] Ps ychiatric/Mental Health [facility] ([facility]) Trazodone Hydrochloride 150 MG Oral Tablet trazodone 03/25 12:00:00 AM EST 150 mg completed [id number] trazodone 201905/24/2019 at bedtime 30 150 mg tablet 23595 [id number] Laz Richardson 3 [id number] Psychiatric/Mental Health [facility] ([facility]) atomoxetine 40 MG Oral Capsule atomoxetine 03/25/2019 12:00:00 AM EST 40 mg by mouth completed [id number] atomoxetine by mouth [id number] 04/201905/24/2019 every morning 30 40 mg capsule 87593 350993 [id number] Laz Richardson [id number] Psychiatric/Mental Health [facility] ([facility]) atomoxetine 40 MG Oral Capsule atomoxetine 03/25/2019 12:00:00 AM EST 40 mg by mouth completed [id number] atomoxetine by mouth [id number] 04/201905/24/2019 every morning 30 40 mg capsule 26681 [id number] [id number] Laz Richardson [id number] Psychiatric/Mental Health [facility] ([facility]) 1,250 mcg (50,000 unit) 03/05/2019 12:00:00 AM EST capsule 4 TAKE 1 CAPSULE BY MOUTH ONCE A WEEK TAKE 1 CAPSULE BY MOUTH ONCE A WEEK SOLD: 03/05/2019 [facility] 25 mcg (1,000 unit) 03/04/2019 12:00:00 AM EST tablet 60 TAKE TWO TABLETS BY MOUTH EVERY DAY TAKE TWO TABLETS BY MOUTH EVERY DAY SOLD: 03/05/2019 [facility] quetiapine 100 MG Oral Tablet QUETIAPINE FUMARATE 03/04/2019 12: 00:00 AM EST tablet 30 TAKE ONE TABLET BY MOUTH EVERY E VENING TAKE ONE TABLET BY MOUTH EVERY EVENING SOLD: 03/05/2019 [facility] 4 mg 03/04/2019 12:00:00 AM EST gum 100 CHEW ONE PIECE OF GUM BUCCALLY EVERY DAY DIRECTED CHEW ONE PIECE OF GUM BUCCALLY EVERY DAY DIRECTED S OLD: 03/05/2019 [facility] 800-160 mg 02/19/2019 12:00:00 AM EST tablet 20 TAKE ONE TABLET BY MOUTH EVERY 12 HOURS TAKE ONE TABLET BY MOUTH EVERY 12 HOURS SOLD: 03/05/2019 [facility] 24 HR Amphetamine aspartate 3.75 MG / Am phetamine Sulfate 3.75 MG / Dextroamphetamine saccharate 3.75 MG / Dextroamphetamine Sulfate 3.75 MG Extended Release Oral Capsule [Adderall] Adderall XR 10/31/2017 12:00:00 AM EDT 15 mg completed [id number] Adderall XR 10/3103/25/2019 every morning 15 mg capsule,extended release 24hr as directed [id number] Laz [place] [id number] Psychiatric/Mental Health [facility] ([facility]) Insurance Providers Payer name Policy type / Coverage type Policy ID Covered libertarian ID Covered libertarian's relationship to fraire Policy Fraire Plan Information [facility] [id number] SP [id number] [facility] O [id number] S [id number] [facility] [id number] SP [id number] Managed Care [place] P [id number] S [id number] Medicaid S [id number] S [id number] Managed Care [place] P [id number] S [id number] [facility] [id number] SP [id number] [facility] [id number] SP [id number] [facility] [id number] SP [id number] MAHENDRA [id number] SP [id number] [facility] [id number] SP [id number] SELF PAY ONLY [id number] SP [id number] SELF PAY ONLY [id number] SP [id number] MEDICAID [id number] SP [id number] MEDICAID M [id number] S [id number] MAHENDRA [id number] SP [id number] [employer] SP Self Pay P [id number] S [id number] Medicaid P [id number] S [id number] [employer] [id number] SP [id number] 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 [id number] SP [id number] [facility] [id number] SP [id number] [facility] [id number] SP [id number] [facility] [id number] SP [id number] Self Pay P UNAVAILABLE S UNAVAILA BLE [facility] O [id number] S [id number] SELF PAY UNAVAILABLE SP UNAVAILA BLE O UNAVAILABLE UNAVAILA BLE Problems, Conditions, and Diagnoses Code Display Name Description Problem Type Effective Dates Data Source(s) F11.20 Opioid dependence, uncomplicated Opioid Use Disorder, Severe Condition 06/08/2019 12:00:00 AM EDT [facility] ([facility]) F15.20 Other stimulant dependence, uncomplicate d Stimulant Use Disorder, Severe: Amphetamine-type substance Condition 06/08/2019 12:00:00 AM EDT [facility] ([facility]) F41.1 Generalized anxiety disorder Generalized Anxiety Disor mgady Condition 06/08/2019 12:00:00 AM EDT [facility] ([facility]) F90.2 Attention-deficit hyperactivity disorder , combined type Attention- Deficit/Hyperactivity Disorder, Combined presentation Condition 06/08/2019 12:00:00 AM EDT [facility] ([facility]) F90.2 Attention-deficit hyperactivity disorder , combined type Attention- Deficit/Hyperactivity Disorder, Combined presentation Condition 03/23/2019 12:00:00 AM EST [facility] ([facility]) F41.1 Generalized anxiety disorder Generalized Anxiety Disor magdy Condition 03/23/2019 12:00:00 AM EST [facility] ([facility]) F11.20 Opioid dependence, uncomplicated Opioid Use Disorder, Severe Condition 02/24/2019 12:00:00 AM EST [facility] ([facility]) F15.20 Other stimulant dependence, uncomplicate d Stimulant Use Disorder, Severe: Amphetamine-type substance Condition 02/24/2019 12:00:00 AM EST [facility] ([facility]) Surgeries/Procedures Procedure Description Date Indications Data Source(s) Extended Individual Psychotherapy - 45 min 06/08/2019 12:00:00 AM EDT - 06/08/2019 12:00:00 AM EDT [facility] ([facility]) Extended Individual Psychotherapy - 45 min 0 12:00:00 AM EDT [facility] ([facility]) Brief Individual Psychotherapy - 30 min 04/21/2019 12:00:00 AM EST - 04/21/2019 12:00:00 AM EST [facility] ([facility]) Brief Individual Psychotherapy - 30 min 04/21/2019 12: 00:00 AM EST [facility] ([facility]) OFFICE OUTPATIENT VISIT 10 MINUTES 04/12 12:00:00 AM EST - 04/12/2019 12:00:00 AM EST [facility] ([facility]) OFFICE OUTPATIENT VISIT 10 MINUTES 04/12/2019 12:00:00 AM EST [facility] ([facility]) Extended Individual Psychotherapy - 45 min 03/31/2019 12:00:00 AM EST - 03/31/2019 12:00:00 AM EST [facility] ([facility]) Extended Individual Psychotherapy - 45 min 0 12:00:00 AM EST [facility] ([facility]) OFFICE OUTPATIENT NEW 20 MINUTES 020 12:00:00 AM EST - 03/25/2019 12:00:00 AM EST [facility] ([facility]) OFFICE OUTPATIENT NEW 20 MINUTES 03/25/2019 12:00:00 A M EST [facility] ([facility]) Extended Individual Psychotherapy - 45 min 03/23/2019 12:00:00 AM EST - 03/23/2019 12:00:00 AM EST [facility] ([facility]) Extended Individual Psychotherapy - 45 min 9 12:00:00 AM EST [facility] ([facility]) 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 SPX 15 MIN 03/08/2019 12:00:00 AM EST - 03/08/2019 12:00:00 AM EST [facility] ([facility]) 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 SPX 15 MIN 03/08 12:00:00 AM EST [facility] ([facility]) Psychiatric Diagnostic Evaluation (Non-Medical) 03/08/2019 12:00:00 AM EST - 03/08/2019 12:00:00 AM EST [facility] ([facility]) Psychiatric Diagnostic Evaluation (Non-Medical) 2018 12:00:00 AM EST [facility] ([facility]) Extended Individual Psychotherapy - 45 min 02/24/2019 12:00:00 AM EST - 02/24/2019 12:00:00 AM EST [facility] ([facility]) Extended Individual Psychotherapy - 45 min 9 12:00:00 AM EST [facility] ([facility]) Results ID Date Data Source [id number] 02/29/2020 12:00:00 AM EST [facility] Name Value Range Interpretation Code Description Data Ita rce(s) Supporting Document(s) SARS coronavirus 2 RNA [Presence] in Res piratory specimen by MARLIN with probe detection [facility] This lab was ordered by Yariel Quezada and reported by [employer]. ID Date Data Source [id number] 11/16/2019 12:28:00 PM EDT [facility] Name Value Range Interpretation Code Description Data Ita rce(s) Supporting Document(s) HCT 48.7 % 42.0-52.0 N [facility] HGB 16.7 g/dL 13.5-17.5 N [facility] MCH 34.3 G/DL pg 32.0-36.5 N [facility] MCHC 32.2 PG % 27.0-33.0 N [facility] PLATELETS 446 10 10*3/mm3 150-450 N [facility] RBC 5.18 10 10*6/mm3 4.30-6.10 N [facility] RDW 13.0 % 11.5-14.5 N [facility] WBC TOTAL 9.2 4.0-10.0 N [facility] ID Date Data Source [id number] 04/23/2019 02:22:01 PM EST [facility] Current Problems: Homeless single person (ICD-V60.0) (FCF47-L59.0)Other bipolar disorder (ICD-296.40) (KDJ16-Q28.89)Elevated blood pressure reading without diagnosis of hypertension (ICD-796.2) (KGJ52-L69.0)BMI 25.0-25.9 (ICD-V85.21) (GHD49-Y34.25)Overweight (ICD-278.02) (QKS88-B63.3)Passive smoke exposure (ICD- V15.89) (HBQ58-Y88.22)Tobacco use (ICD-305.1) (PZJ71-B54.0)Current Medications: TRAZODONE HCL 150 MG ORAL TABLET (TRAZODONE HCL) ; Route: ORAL Dental Chart: Procedures:Type - CDT Code - Description B - (D2940) Sedative filling on Tooth # 21 on Tooth Surface B (Performed by Tammy Levi DMD) B - (D0140) Limited oral evaluation - problem focused on Tooth # 21 (Performed by Tammy Levi DMD) B - (D0220) Intraoral, periapical, first radiographic image on Tooth # 21 (Performed by Tammy Levi DMD) Treatments:Type - CDT Code - Description T - (D2391) Resin-based composite - one surface, posterior on Tooth # 21 on Tooth Surface B (Performed by Tammy Levi DMD) Existing:Type - CDT Code - Description[E] Decay On #21 Surface B[E] Fractured On #21 Surface B Chart Notes:samuel (Apr 23 2019 3:49PM): S: Pt. is a walk in to clinic at 2:15pm on a friday stating dental pain seems very lethargic in opperatroy, does not sit up straight, head seems to be lagging like pt. is ready to fall asleep. CC: ' tooth on the bottom right is causing me pain so much i feel like its giving me a headache and hurting into my eye, pt. points to LL side towards exterior posterior portion, leads family readiness support assistant to believe possible molar. When examing prior to exposuring PA, noted no posterior teeth distal to #21, canine identified by pt. prior to pa exposure as cc. O: RMHx (trazodone to sleep per pt. nothing else noted on medical history) HPI: [address]: 10, hot and cold sensitive and pressure sensitive. BP: 143/105 with autoamtic cuff 122/80 temo manually; Missing filling on facial #21. A: DDS recommends lainey #21-F DX: missing filling with cariesP: eugenol place and protective tempit tempoary lainey placed. pt. needs to go to medical to be seen and then can be scheduled. Advised pt. this is temporary not to brush to hard and to keep up with OH at home. Assisted By:DIMAV: Lainey 1hr after pt. has had a medical appt. with good health result. concerned as pt. has not had routine medical care. Tammy Levi DMD by samuel (04/23/2019 3:49 PM): Tooth Notes and Watches: Assessment & Plan Medicatio ns:TRAZODONE HCL 150 MG ORAL TABLETMedication Changes:Added: TRAZODONE HCL 150 MG ORAL TABLETAllergies:No Known Allergies (updated 01/20/2017) Name Value Range Interpretation Code Description Data Ita rce(s) Supporting Document(s) Procedure Social History Code Duration Value Status Description Data Source(s ) Smoking 06/08/2019 12:00:00 AM EDT Unknown if ever smoked comp leted Unknown if ever smoked [facility] ([facility]) Smoking 04/21/2019 12:00:00 AM EST Unknown if ever smoked comp leted Unknown if ever smoked [facility] ([facility]) Smoking 04/12/2019 12:00:00 AM EST Unknown if ever smoked comp leted Unknown if ever smoked [facility] ([facility]) Smoking 03/31/2019 12:00:00 AM EST Unknown if ever smoked comp leted Unknown if ever smoked [facility] ([facility]) Smoking 03/25/2019 12:00:00 AM EST Unknown if ever smoked comp leted Unknown if ever smoked [facility] ([facility]) Smoking 03/23/2019 12:00:00 AM EST Unknown if ever smoked comp leted Unknown if ever smoked [facility] ([facility]) Smoking 03/08/2019 12:00:00 AM EST Unknown if ever smoked comp leted Unknown if ever smoked [facility] ([facility]) Smoking 02/24/2019 12:00:00 AM EST Unknown if ever smoked comp leted Unknown if ever smoked [facility] ([facility]) Vital Signs ID Date Data Source UNK Name Value Range Interpretation Code Description Data Source(s) Body mass index (BMI) [Ratio] 23.2 kg/m2 23.2 k g/m2 [facility] ([facility]) Body height 66 [in_i] 66 [in_i] [facility] ([facility]) 5'6" Body weight 144.00 [lb_av] 144.00 [lb_av] [facility] T ([facility]) Body temperature 97.7 [degF] 97.7 [degF] [facility] ([facility]) Oxygen saturation in Arterial blood by Pulse oximetry 98 % 98 % [facility] ([facility]) Respiratory rate 18 /min 18 /min [facility] ( [facility]) Heart rate 97 /min 97 /min [facility] ([facility]) Diastolic blood pressure 93 mm[Hg] 93 mm[Hg] [facility] ([facility]) Systolic blood pressure 136 mm[Hg] 136 mm[Hg] M [facility] ([facility], [facility]) Diastolic blood pressure 0 mm[Hg] Normal (applies to non-numeric results) 0 mm[Hg] [facility] ([facility]) Systolic blood pressure 0 mm[Hg] Normal (applies t o non-numeric results) 0 mm[Hg] [facility] ([facility]) Body mass index (BMI) [Ratio] 0.00 kg/m2 No rmal (applies to non-numeric results) 0.00 kg/m2 [facility] ([facility]) Body weight Measured 0.00 lbs Normal (applies to n on-numeric results) 0.00 lbs [facility] ([facility]) Body height 0.00 in Normal (applies to non-numeric resu lts) 0.00 in [facility] ([facility]) Diastolic blood pressure 0 mm[Hg] Normal (applies to non-numeric results) 0 mm[Hg] [facility] ([facility]) Systolic blood pressure 0 mm[Hg] Normal (applies t o non-numeric results) 0 mm[Hg] [facility] ([facility]) Body mass index (BMI) [Ratio] 0.00 kg/m2 No rmal (applies to non-numeric results) 0.00 kg/m2 [facility] ([facility]) Body weight Measured 0.00 lbs Normal (applies to n on-numeric results) 0.00 lbs [facility] ([facility]) Body height 0.00 in Normal (applies to non-numeric resu lts) 0.00 in [facility] ([facility]) Body height --lying 97 min Normal (applies to non-nume adama results) 97 min [facility] ([facility]) Diastolic blood pressure 89 mm[Hg] Normal (applies to non-numeric results) 89 mm[Hg] [facility] ([facility]) Systolic blood pressure 126 mm[Hg] Normal (applies t o non-numeric results) 126 mm[Hg] [facility] ([facility]) Body mass index (BMI) [Ratio] 25.98 kg/m2 No rmal (applies to non-numeric results) 25.98 kg/m2 [facility] ([facility]) Body weight Measured 161.00 lbs Normal (applies to n on-numeric results) 161.00 lbs [facility] ([facility]) Body height 66.00 in Normal (applies to non-numeric resu lts) 66.00 in [facility] ([facility])
--- OUTSIDE RECORDS SUMMARY | 2020-04-11 02:25 | CCD ---
Author Author [facility] Organization [facility] Address Unknown Phone Unavailable Care Team Providers Care Leaded Glass Installer Name Role Phone Juan Miguel, A Radha TREER Unavailable Unavailable Juan Miguel, A Radha TREER Unavailable Unavailable Juan Miguel, A Radha TREER Unavailable Unavailable Juan Miguel, A Radha TREER Unavailable Unavailable Juan Miguel, A Radha TREER Unavailable Unavailable Juan Miguel, A Radha TREER Unavailable Unavailable Juan Miguel, A Radha TREER Unavailable Unavailable Juan Miguel, A Radha TREER Unavailable Unavailable Juan Miguel, A Radha TREER Unavailable Unavailable Juan Miguel, A Radha TREER Unavailable Unavailable Juan Miguel, A Radha TREER Unavailable Unavailable Juan Miguel, A Radha TREER Unavailable Unavailable Juan Miguel, A Radha TREER Unavailable Unavailable Juan Miguel, A Radha TREER Unavailable Unavailable Jaun Miguel, A Radha TREER Unavailable Unavailable Juan Miguel, A Radha TREER Unavailable Unavailable Juan Miguel, A Radha TREER Unavailable Unavailable Juan Miguel, A Radha TREER Unavailable Unavailable Juan Miguel, A Radha TREER Unavailable Unavailable Juan Miguel, A Radha TREER Unavailable Unavailable Juan Miguel, A Radha TREER Unavailable Unavailable Juan Miguel, A Radha TREER Unavailable Unavailable Juan Miguel, A Radha TREER Unavailable Unavailable Juan Miguel, A Radha TREER Unavailable Unavailable Juan Miguel, A Radha TREER Unavailable Unavailable Juan Miguel, A Radha TREER Unavailable Unavailable Juan Miguel, A Radha TREER Unavailable Unavailable Mi, Nadia TREER TREER Unavailable Unavailable Amyot, Sameer Unavailable Whipple, Phuong Unavailable Kim, C Laz Unavailable Unavailable Dylan, C Laz Unavailable Unavailable Kim, C Laz Unavailable Unavailable Dylan, C Laz Unavailable Unavailable Kim, C Laz Unavailable Unavailable Dylan, C Laz Unavailable Unavailable Kim, C Laz Unavailable Unavailable LaBarge, Anthony Unavailable Mi, F Nadia TREER-BC Unavailable Unavailable Mi, F Nadia TREER-BC Unavailable Unavailable Mi, F Nadia TREER-BC Unavailable Unavailable Mi, F Nadia TREER-BC Unavailable Unavailable Mi, F Nadia TREER-BC Unavailable Unavailable Mi, F Nadia TREER-BC Unavailable Unavailable Mi, F Nadia TREER-BC Unavailable Unavailable Mi, F Nadia TREER-BC Unavailable Unavailable Mi, F Nadia TREER-BC Unavailable Unavailable Mi, F Nadia TREER-BC Unavailable Unavailable Mi, F Nadia TREER-BC Unavailable Unavailable Mi, F Nadia TREER-BC Unavailable Unavailable Mi, F Nadia TREER-BC Unavailable Unavailable Mi, F Nadia TREER-BC Unavailable Unavailable Mi, F Nadia TREER-BC Unavailable Unavailable Mi, F Nadia TREER-BC Unavailable Unavailable Mi, F Nadia TREER-BC Unavailable Unavailable Mi, F Nadia TREER-BC Unavailable Unavailable Mi, F Nadia TREER-BC Unavailable Unavailable Mi, F Nadia TREER-BC Unavailable Unavailable Mi, F Nadia TREER-BC Unavailable Unavailable Mi, F Nadia TREER-BC Unavailable Unavailable Juan Miguel, Radha TREER TREER Unavailable Unavailable BartAshly flower Phil TREER Unavailable Unavailable BarterAshly Phil TREER Unavailable Unavailable Barter D Phil TREER Unavailable Unavailable Barter, D Phil TREER Unavailable Unavailable Barter, D Phil TREER Unavailable Unavailable Barter, D Phil TREER Unavailable Unavailable Barter, D Phil TREER Unavailable Unavailable Barter, D Phil TREER Unavailable Unavailable Barter, D Phil TREER Unavailable Unavailable Barter, D Phil TREER Unavailable Unavailable Barter, D Phil TREER Unavailable Unavailable Barter, D Phil TREER Unavailable Unavailable Barter, D Phil TREER Unavailable Unavailable Barter, D Phil TREER Unavailable Unavailable Barter, D Phil TREER Unavailable Unavailable Barter, D Phil TREER Unavailable Unavailable Barter, D Phil TREER Unavailable Unavailable Barter, D Phil TREER Unavailable Unavailable Barter, D Phil TREER Unavailable Unavailable Barter, D Phil TREER Unavailable Unavailable Barter, D Phil TREER Unavailable Unavailable Barter, D Phil TREER Unavailable Unavailable Barter, D Phil TREER Unavailable Unavailable Barter, D Phil TREER Unavailable Unavailable Barter, D Phil TREER Unavailable Unavailable Barter, D Phil TREER Unavailable Unavailable Barter, D Phil TREER Unavailable Unavailable Barter, D Phil TREER Unavailable Unavailable Barter, D Phil TREER Unavailable Unavailable Barter, D Phil TREER Unavailable Unavailable Barter, D Phil TREER Unavailable Unavailable Barter, D Phil TREER Unavailable Unavailable Barter, D Phil TREER Unavailable Unavailable Barter, D Phil TREER Unavailable Unavailable Barter, D Phil TREER Unavailable Unavailable Barter, D Phil TREER Unavailable Unavailable Barter, D Phil TREER Unavailable Unavailable Barter, D Phil TREER Unavailable Unavailable Barter, D Phil TREER Unavailable Unavailable Barter, D Phil TREER Unavailable Unavailable Barter, D Phil TREER Unavailable Unavailable Barter, D Phil TREER Unavailable Unavailable Barter, D Phil TREER Unavailable Unavailable Barter, D Phil TREER Unavailable Unavailable Barter, D Phil TREER Unavailable Unavailable Barter, D Phil TREER Unavailable Unavailable Barter, D Phil TREER Unavailable Unavailable Barter, D Phil TREER Unavailable Unavailable Barter, D Phil TREER Unavailable Unavailable Barter, D Phil TREER Unavailable Unavailable Barter, D Phil TREER Unavailable Unavailable Barter, D Phil TREER Unavailable Unavailable Barter, D Phil TREER Unavailable Unavailable Barter, D Phil TREER Unavailable Unavailable LETTIERE, A DARRICK PA Unavailable [...] is protected by Article 27-F of the [facility] Public Health law. If you continue you may have access to information: Regarding HIV / AIDS; Provided by facilities licensed or operated by the [facility] Office of Mental Health; or Provided by the [facility] Office for People With Developmental Disabilities. If such information is present, then the following [facility] mandated warning applies: This information has been [...] law may result in a fine or assisted sentence or both. A general authorization for the release of medical or other information is NOT sufficient authorization for further disc losure. Allergies and Adverse Reactions Type Description Substance Reaction Status Data Source(s ) Propensity to adverse reactions to substance methylphenidate hcl 24 HR Methylphenidate Hydrochloride 18 MG Extended Release Oral Tablet Active [facility] ([facility]) Propensity to adverse reactions to substance bupropion hcl 24 HR Bupropion Hydrochloride 150 MG Extended Release Oral Tablet Active [facility] ([facility]) Propensity to adverse reactions to substance atomoxetine atomoxetine 40 MG Oral Capsule Active [facility] ([facility]) Propensity to adverse reactions to substance methylphenidate hcl 24 HR Methylphenidate Hydrochloride 18 MG Extended Release Oral Tablet Active [facility] ([facility]) Propensity to adverse reactions to substance bupropion hcl 24 HR Bupropion Hydrochloride 150 MG Extended Release Oral Tablet Active [facility] ([facility]) Encounters Encounter Providers Location Date Indications Data Source(s ) Outpatient Attender: Radha MADRIGAL 12/12/2019 02:4 9:03 PM EDT [facility] Outpatient Attender: ANKIT MADRIGAL 12/12/2019 02:49:01 P M EDT [facility] Outpatient Attender: ANKIT MADRIGAL 11/12/2019 12:02:26 A M EDT [facility] Outpatient Attender: ANKIT MADRIGAL 11/11/2019 02:10:00 P M EDT [facility] Outpatient Attender: ANKIT MADRIGAL 11/11/2019 02:08:01 P M EDT [facility] Outpatient Attender: ANKIT MADRIGAL 11/11/2019 11:46:00 A M EDT [facility] Outpatient Attender: ANKIT MADRIGAL 11/11/2019 11:30:01 AM EDT [facility] Outpatient Attender: DARRICK gonsalez 10/18/2019 01:50:00 PM [facility] Outpatient Attender: ANKIT MADRIGAL 08/31/2019 07:53:14 PM EDT [facility] Extended Individual Psychotherapy - 45 min Attender: Mandeep Elder [facility] 06/08/2019 09:45:00 AM EDT - 06/08/2019 09:45:00 AM EDT [facility] ([facility] Attender: Anthony Elder 06/08/2019 12:00:00 AM EDT [facility] Attender: ANKIT MADRIGAL 05/05/2019 07:38:01 AM [facility] Outpatient Attender: ANKIT MADRIGAL 04/23/2019 09:01:09 PM [facility] Outpatient Attender: Nadia MADRIGAL 04/23/2019 03: 50:01 PM [facility] Outpatient Attender: ANKIT MADRIGAL 04/23/2019 02:30:02 PM [facility] Outpatient Attender: ANKIT MADRIGAL 04/23/2019 02:28:00 PM [facility] Outpatient Attender: ANKIT MADRIGAL 04/23/2019 02:15:01 PM [facility] Brief Individual Psychotherapy - 30 min Attender: Anthony miranda [facility] 04/21/2019 09:45:00 AM EST - 04/21/2019 09:45:00 AM EST [facility] ([facility]) Attender: Anthonysilver Elder 04/21/2019 12:00:00 AM EST [facility] Outpatient Attender: ANKIT MADRIGAL 04/16/2019 09:29:38 AM [facility] Outpatient Attender: ANKIT MADRIGAL 04/12/2019 11:34:01 AM [facility] Outpatient Attender: Nadia MADRIGAL 04/12/2019 11: 33:01 AM [facility] Outpatient Attender: ANKIT MADRIGAL 04/12/2019 11:32:01 AM [facility] Outpatient Attender: Laz Dylan [facility] 0 04/12/2019 03:00:00 AM EST - 04/12/2019 03:00:00 AM EST [facility] Attender: Laz Richardson 04/12/2019 12:00:00 AM EST [facility] ([facility]) Extended Individual Psychotherapy - 45 min [facility] 03/31/2019 10:15:00 AM EST - 03/31/2019 10:15:00 AM EST [facility] ([facility]) Attender: Anthony [facility] 03/31/2019 12:00:00 AM EST [facility] ([facility]) Outpatient Attender: Laz Kim [facility] 0 03/25/2019 10:00:00 AM EST - 03/25/2019 10:00:00 AM EST [facility] ([facility]) Attender: Laz Richardson 03/25/2019 12:00:00 AM EST [facility] ([facility]) Extended Individual Psychotherapy - 45 min Attender: Mandeep oliva [facility] 03/23/2019 01:45:00 AM EST - 03/23/2019 01:45:00 AM EST [facility] ([facility] 12:00:00 AM EST [facility] ([facility]) Psychiatric Diagnostic Evaluation (Non-Medical) Attender: Alejandra castro [facility] 03/08/2019 11:00:00 AM EST - 03/08/2019 11:00:00 AM EST [facility] ([facility]) Health Monitoring - 15 Min Attender: Phuong Whipple [facility] 03/08/2019 10:30:00 AM EST - 03/08/2019 10:30:00 AM EST [facility] ([facility]) Attender: Phuong Whipple 03/08/2019 12:00:00 AM EST [facility] ([facility]) Attender: Anthony [facility] 03/08/2019 12:00:00 AM EST [facility] ([facility]) Outpatient Referrer: Phil Fall TREER 03/04/2019 09:36:00 P M EST [facility] Extended Individual Psychotherapy - 45 min Attender: Lam Perez [facility] 02/24/2019 02:30:00 AM EST - 02/24/2019 02:30:00 AM EST [facility] ([facility]) Attender: Sameer Perez 02/24/2019 12:00:[address] [facility] ([facility]) Functional Status Medications Medication Brand Name Start Date Product Form Dose Route Admi nistrative Instructions Pharmacy Instructions Status Indications Reaction Description Data Source(s) 200 ACTUAT Albuterol 0.09 MG/ACTUAT Metered Dose Inhaler [Pr oAir] Proair HFA 10/18/2019 12:00:00 AM EDT RESPIRATORY active [facility] ([facility]) Prednisone 20 MG Oral Tablet Prednisone 10/18/2019 12:00:00 AM EDT active [facility] ([facility]) Azithromycin 250 MG Oral Tablet Azithromycin 10/18/2019 12:00:00 AM EDT active [facility] ([facility]) No Active Medications 10/18/2019 12:00:00 AM EDT completed [facility] ([facility]) 15 mg 04/13/2019 12:00:00 AM EST capsule,extended releas e 24hr 30 TAKE ONE CAPSULE BY MOUTH EVERY MORNING MAXIMUM DAILY DOSE = 1 CAPSULE TAKE ONE CAPSULE BY MOUTH EVERY MORNING MAXIMUM DAILY DOSE = 1 CAPSULE SOLD: 04/13/2019 [email or web address] 24 HR Amphetamine aspartate 3.75 MG / Am phetamine Sulfate 3.75 MG / Dextroamphetamine saccharate 3.75 MG / Dextroamphetamine Sulfate 3.75 MG Extended Release Oral Capsule [Adderall] Adderall XR 04/12/2019 12:00:00 AM EST 15 mg by mouth completed [id number] Adderall XR by [facility] [id number] 04/12/2019 05/12/2019 every morning 30 15 mg capsule,extended release 24h r [id number] Laz Richardson [id number] Psychiatric/Mental Health [facility] ([facility]) 40 mg 03/26/2019 12:00:00 AM EST capsule 30 TAKE ONE CAPSULE BY MOUTH EVERY MORNING TAKE ONE CAPSULE BY MOUTH EVERY MORNING SOLD: 03/27/2019 [facility] 24 HR Guanfacine 2 MG Extended Release Oral Tablet [Intuniv] Intuniv ER 03/25/2019 12:00:00 AM EST 2 mg by mouth completed [id number] Intun[facility] ER by mouth [id number] 03/25/2019 05/24/2019 at bedtime 30 2 mg tablet extended release 24 hr 62220 [id number] Laz Richardson [id number] Ps ychiatric/Mental Health [facility] ([facility]) Trazodone Hydrochloride 150 MG Oral Tablet trazodone 03/25 12:00:00 AM EST 150 mg completed [id number] trazodone 201906/11/2019 at bedtime 30 150 mg tablet [id number] [id number] Laz Richardson 3 [id number] Psychiatric/Mental Health [facility] ([facility]) 24 HR Guanfacine 2 MG Extended Release Oral Tablet [Intuniv] Intuniv ER 03/25/2019 12:00:00 AM EST 2 mg by mouth completed [id number] Intuniv ER by mouth [id number] 03/25/2019 05/24/2019 at bedtime 30 2 mg tablet extended release 24 hr 40068 [id number] Laz Richardson [id number] Ps hiatric/Mental Health [facility] ([facility]) 150 mg 03/25/2019 12:00:00 AM EST tablet 30 TAKE ONE TABLET BY MOUTH AT BEDTIME TAKE ONE TABLET BY MOUTH AT BEDTIME SOLD: 03/26/2019 [facility] Trazodone Hydrochloride 150 MG Oral Tablet trazodone 03/25 12:00:00 AM EST 150 mg completed [id number] trazodone 201906/11/2019 at bedtime 30 150 mg tablet 02267 [id number] Laz Richardson 3 [id number] Psychiatric/Mental Health [facility] ([facility]) Trazodone Hydrochloride 150 MG Oral Tablet trazodone 03/25 12:00:00 AM EST 150 mg completed [id number] trazodone 201906/11/2019 at bedtime 30 150 mg tablet 82528 714161 [id number] Laz Richardson 3 [id number] Psychiatric/Mental Health [facility] ([facility]) atomoxetine 40 MG Oral Capsule atomoxetine 03/25/2019 12:00:00 AM EST 40 mg by mouth completed [id number] atomoxetine by mouth [id number] 04/201905/24/2019 every morning 30 40 mg capsule 76935 348957 [id number] Laz Richardson [id number] Psychiatric/Mental Health [facility] ([facility]) 24 HR Guanfacine 2 MG Extended Release Oral Tablet GUANFACIN E HCL 03/25/2019 12:00:00 AM EST tablet extended release 24 hr 30 TA KE ONE TABLET BY MOUTH AT BEDTIME TAKE ONE TABLET BY MOUTH AT BEDTIME SOLD: 03/26/2019 [facility] 24 HR Guanfacine 2 MG Extended Release Oral Tablet [Intuniv] Intuniv ER 03/25/2019 12:00:00 AM EST 2 mg by mouth completed [id number] Intuniv ER by mouth [id number] 03/25/2019 05/24/2019 at bedtime 30 2 mg tablet extended release 24 hr 43970 [id number] Laz Richardson [id number] Ps ychiatric/Mental Health [facility] ([facility]) Trazodone Hydrochloride 150 MG Oral Tablet trazodone 03/25 12:00:00 AM EST 150 mg completed [id number] trazodone 201905/24/2019 at bedtime 30 150 mg tablet 95111 744315 [id number] Laz Richardson 3 [id number] Psychiatric/Mental Health [facility] ([facility]) atomoxetine 40 MG Oral Capsule atomoxetine 03/25/2019 12:00:00 AM EST 40 mg by mouth completed [id number] atomoxetine by mouth [id number] 04/201905/24/2019 every morning 30 40 mg capsule 93727 [id number] Laz Richardson [id number] Psychiatric/Mental Health [facility] ([facility]) atomoxetine 40 MG Oral Capsule atomoxetine 03/25/2019 12:00:00 AM EST 40 mg by mouth completed [id number] atomoxetine by mouth [id number] 04/201905/24/2019 every morning 30 40 mg capsule 89365 487994 [id number] Laz Richardson [id number] Psychiatric/Mental Health [facility] ([facility]) 1,250 mcg (50,000 unit) 03/05/2019 12:00:00 [...] 10/31/2017 12:00:00 AM EDT 15 mg completed [id number] Adderall XR 10/3103/25/2019 every morning 15 mg capsule,extended release 24hr as directed 61498 [id number] Laz Kim [id number] Psychiatric/Mental Health [facility] ([facility]) Insurance Providers Payer name Policy type / Coverage type Policy ID Covered democrat ID Covered democrat's relationship to fraire Policy Fraire Plan Information [employer] [id number] SP [id number] [facility]) O [id number] S [id number] [facility] [id number] SP [id number] Managed Care [place] P [id number] S [id number] Medicaid S [id number] S [id number] Managed Care [place] P [id number] S [id number] [facility] [id number] SP [id number] [facility] [id number] SP [id number] [facility] [id number] SP [id number] MAHENDRA [id number] SP [id number] [facility] [id number] SP [id number] SELF PAY ONLY [id number] SP [id number] SELF PAY ONLY [id number] SP [id number] MEDICAID [id number] SP [id number] MEDICAID M [id number] S [id number] MAHENDRA [id number] SP [id number] [employer] SP Self Pay P [id number] S [id number] Medicaid P [id number] S [id number] [employer] [id number] SP [id number] 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 [id number] SP [id number] [facility] [id number] SP [id number] [facility] [id number] SP [id number] [facility] [id number] SP [id number] Self Pay P UNAVAILABLE S UNAVAILA BLE [facility] O [id number] S [id number] SELF PAY UNAVAILABLE SP UNAVAILA BLE O UNAVAILABLE UNAVAILA BLE Problems, Conditions, and Diagnoses Code Display Name Description Problem Type Effective Dates Data Source(s) F11.20 Opioid dependence, uncomplicated Opioid Use Disorder, Severe Condition 06/08/2019 12:00:00 AM EDT [facility] ([facility]) F15.20 Other stimulant dependence, uncomplicate d Stimulant Use Disorder, Severe: Amphetamine-type substance Condition 06/08/2019 12:00:00 AM EDT [facility] ([facility]) F41.1 Generalized anxiety disorder Generalized Anxiety Disor magdy Condition 06/08/2019 12:00:00 AM EDT [facility] ([facility]) F90.2 Attention-deficit hyperactivity disorder , combined type Attention- Deficit/Hyperactivity Disorder, Combined presentation Condition 06/08/2019 12:00:00 AM EDT [facility] ([facility]) F90.2 Attention-deficit hyperactivity disorder , combined type Attention- Deficit/Hyperactivity Disorder, Combined presentation Condition 03/23/2019 12:00:00 AM EST [facility] ([facility]) F41.1 Generalized anxiety disorder Generalized Anxiety Disor magdy Condition 03/23/2019 12:00:00 AM EST [facility] ([facility]) F11.20 Opioid dependence, uncomplicated Opioid Use Disorder, Severe Condition 02/24/2019 12:00:00 AM EST [facility] ([facility]) F15.20 Other stimulant dependence, uncomplicate d Stimulant Use Disorder, Severe: Amphetamine-type substance Condition 02/24/2019 12:00:00 AM EST [facility] ([facility]) Surgeries/Procedures Procedure Description Date Indications Data Source(s) Extended Individual Psychotherapy - 45 min 06/08/2019 12:00:00 AM EDT - 06/08/2019 12:00:00 AM EDT [facility] ([facility]) Extended Individual Psychotherapy - 45 min 0 12:00:00 AM EDT [facility] ([facility]) Brief Individual Psychotherapy - 30 min 04/21/2019 12:00:00 AM EST - 04/21/2019 12:00:00 AM EST [facility] ([facility]) Brief Individual Psychotherapy - 30 min 04/21/2019 12: 00:00 AM EST [facility] ([facility]) OFFICE OUTPATIENT VISIT 10 MINUTES 04/12 12:00:00 AM EST - 04/12/2019 12:00:00 AM EST [facility] ([facility]) OFFICE OUTPATIENT VISIT 10 MINUTES 04/12/2019 12:00:00 AM EST [facility] ([facility]) Extended Individual Psychotherapy - 45 min 03/31/2019 12:00:00 AM EST - 03/31/2019 12:00:00 AM EST [facility] ([facility]) Extended Individual Psychotherapy - 45 min 0 12:00:00 AM EST [facility] ([facility]) OFFICE OUTPATIENT NEW 20 MINUTES 020 12:00:00 AM EST - 03/25/2019 12:00:00 AM EST [facility] ([facility]) OFFICE OUTPATIENT NEW 20 MINUTES 03/25/2019 12:00:00 A M EST [facility] ([facility]) Extended Individual Psychotherapy - 45 min 03/23/2019 12:00:00 AM EST - 03/23/2019 12:00:00 AM EST [facility] ([facility] Extended Individual Psychotherapy - 45 min 9 12:00:00 AM EST [facility] ([facility]) PREVENT MED BOTTOM STOP ATTACHER&/RISK FACTOR REDJ SPX 15 MIN 03/08/2019 12:00:00 AM EST - 03/08/2019 12:00:00 AM EST [facility] ([facility]) PREVENT MED BOTTOM STOP ATTACHER&/RISK FACTOR REDJ SPX 15 MIN 03/08 12:00:00 AM EST [facility] ([facility]) Psychiatric Diagnostic Evaluation (Non-Medical) 03/08/2019 12:00:00 AM EST - 03/08/2019 12:00:00 AM EST [facility] ([facility]) Psychiatric Diagnostic Evaluation (Non-Medical) 2018 12:00:00 AM EST [facility] ([facility]) Extended Individual Psychotherapy - 45 min 02/24/2019 12:00:00 AM EST - 02/24/2019 12:00:00 AM EST [facility] ([facility]) Extended Individual Psychotherapy - 45 min 9 12:00:00 AM EST [facility] ([facility]) Results ID Date Data Source [id number] 02/29/2020 12:00:00 AM EST [facility] Name Value Range Interpretation Code Description Data Ita rce(s) Supporting Document(s) SARS coronavirus 2 RNA [Presence] in Res piratory specimen by MARLIN with probe detection [facility] This lab was ordered by Yariel Quezada and reported by [email or web address]. ID Date Data Source [id number] 11/16/2019 12:28:00 PM EDT [facility] Name Value Range Interpretation Code Description Data Ita rce(s) Supporting Document(s) HCT 48.7 % 42.0-52.0 N [facility] HGB 16.7 g/dL 13.5-17.5 N [facility] MCH 34.3 G/DL pg 32.0-36.5 N [facility] MCHC 32.2 PG % 27.0-33.0 N [facility] PLATELETS 446 10 10*3/mm3 150-450 N [facility] RBC 5.18 10 10*6/mm3 4.30-6.10 N [facility] RDW 13.0 % 11.5-14.5 N [facility] WBC TOTAL 9.2 4.0-10.0 N [facility] ID Date Data Source [id number] 04/23/2019 02:22:01 PM EST [facility] Current Problems: Homeless single person (ICD-V60.0) (DCY17-W44.0)Other bipolar disorder (ICD-296.40) (GEN93-X13.89)Elevated blood pressure reading without diagnosis of hypertension (ICD-796.2) (QNM32-H86.0)BMI 25.0-25.9 (ICD-V85.21) (UIW83-E08.25)Overweight (ICD-278.02) (NCH77-Q02.3)Passive smoke exposure (ICD- V15.89) (KVZ43-I08.22)Tobacco use (ICD-305.1) (HDT38-M01.0)Current Medications: TRAZODONE HCL 150 MG ORAL TABLET [...] LL side towards exterior posterior portion, leads medical practice assistant to believe possible molar. When examing [...] leted Unknown if ever smoked [facility] ([facility]) Smoking 04/21/2019 12:00:00 AM EST Unknown if ever smoked comp leted Unknown if ever smoked [facility] ([facility]) Smoking 04/12/2019 12:00:00 AM EST Unknown if ever smoked comp leted Unknown if ever smoked [facility] ([facility]) Smoking 03/31/2019 12:00:00 AM EST Unknown if ever smoked comp leted Unknown if ever smoked [facility] ([facility]) Smoking 03/25/2019 12:00:00 AM EST Unknown if ever smoked comp leted Unknown if ever smoked [facility] ([facility]) Smoking 03/23/2019 12:00:00 AM EST Unknown if ever smoked comp leted Unknown if ever smoked [facility] ([facility]) Smoking 03/08/2019 12:00:00 AM EST Unknown if ever smoked comp leted Unknown if ever smoked [facility] ([facility]) Smoking 02/24/2019 12:00:00 AM EST Unknown if ever smoked comp leted Unknown if ever smoked [facility] ([facility]) Vital Signs ID Date Data Source UNK Name Value Range Interpretation Code Description Data Source(s) Body mass index (BMI) [Ratio] 23.2 kg/m2 23.2 k g/m2 [facility] ([facility]) Body height 66 [in_i] 66 [in_i] [facility] ([facility]) 5'6" Body weight 144.00 [lb_av] 144.00 [lb_av] [facility] T ([facility]) Body temperature 97.7 [degF] 97.7 [degF] [facility] ([facility]) Oxygen saturation in Arterial blood by Pulse oximetry 98 % 98 % [facility] ([facility], [facility]) Respiratory rate 18 /min 18 /min [facility] ( [facility], [facility]) Heart rate 97 /min 97 /min [facility] ([facility], [facility]) Diastolic blood pressure 93 mm[Hg] 93 mm[Hg] [facility] ([facility], [facility]) Systolic blood pressure 136 mm[Hg] 136 mm[Hg] [facility] ([facility], [facility]) Diastolic blood pressure 0 mm[Hg] Normal (applies to non-numeric results) 0 mm[Hg] [facility] ([facility]) Systolic blood pressure 0 mm[Hg] Normal (applies t o non-numeric results) 0 mm[Hg] [facility] ([facility]) Body mass index (BMI) [Ratio] 0.00 kg/m2 No rmal (applies to non-numeric results) 0.00 kg/m2 [facility] ([facility]) Body weight Measured 0.00 lbs Normal (applies to n on-numeric results) 0.00 lbs [facility] ([facility]) Body height 0.00 in Normal (applies to non-numeric resu lts) 0.00 in [facility] ([facility]) Diastolic blood pressure 0 mm[Hg] Normal (applies to non-numeric results) 0 mm[Hg] [facility] ([facility]) Systolic blood pressure 0 mm[Hg] Normal (applies t o non-numeric results) 0 mm[Hg] [facility] ([facility]) Body mass index (BMI) [Ratio] 0.00 kg/m2 No rmal (applies to non-numeric results) 0.00 kg/m2 [facility] ([facility]) Body weight Measured 0.00 lbs Normal (applies to n on-numeric results) 0.00 lbs [facility] ([facility]) Body height 0.00 in Normal (applies to non-numeric resu lts) 0.00 in [facility] ([facility]) Body height --lying 97 min Normal (applies to non-nume adama results) 97 min [facility] ([facility]) Diastolic blood pressure 89 mm[Hg] Normal (applies to non-numeric results) 89 mm[Hg] [facility] ([facility]) Systolic blood pressure 126 mm[Hg] Normal (applies t o non-numeric results) 126 mm[Hg] [facility] ([facility]) Body mass index (BMI) [Ratio] 25.98 kg/m2 No rmal (applies to non-numeric results) 25.98 kg/m2 [facility] ([facility]) Body weight Measured 161.00 lbs Normal (applies to n on-numeric results) 161.00 lbs [facility] ([facility]) Body height 66.00 in Normal (applies to non-numeric resu lts) 66.00 in [facility] ([facility])
[2020-04-11] MEDS ORDERED: GI COCKTAIL 50ML BTL(HYOSCYAMINE/MAALOX/LIDOCAINE VISCOUS)(1:3:1) PO ONE (02:45)
[2020-04-11 02:57] LABS: BASO # 0.1 10^3/uL (0.0-0.2); BASO % 0.7 % (0.0-1.0); EOS # 0.2 10^3/uL (0.0-0.5); HEMATOCRIT 46.9 % (42.0-52.0); HEMOGLOBIN 15.6 g/dl (13.5-17.5); LYMPH # 2.4 10^3/uL (1.5-5.0); MEAN CORPUSCULAR HEMOGLOBIN 30.9 pg (27.0-33.0); MEAN CORPUSCULAR HGB CONC 33.3 g/dl (32.0-36.5); MEAN CORPUSCULAR VOLUME 92.9 fl (80.0-96.0); MONO % 12.2 % (0.0-5.0); NEUTROPHILS # 4.6 10^3/uL (1.5-8.5); NEUTROPHILS % 55.7 % (36.0-66.0); PLATELET COUNT, AUTOMATED 463 10^3/uL (150-450); RED BLOOD COUNT 5.05 10^6/uL (4.30-6.10); WHITE BLOOD COUNT 8.2 10^3/uL (4.0-10.0)
[2020-04-11 03:38] LABS: ALT/SGPT 23 U/L (12-78); BILIRUBIN,DIRECT < 0.1 MG/DL (0.0-0.2); BILIRUBIN,TOTAL 0.5 MG/DL (0.2-1.0); BLOOD UREA NITROGEN 8 MG/DL (7-18); CALCIUM LEVEL 9.5 MG/DL (8.5-10.1); CARBON DIOXIDE LEVEL 27 MEQ/L (21-32); CHLORIDE LEVEL 106 MEQ/L (98-107); CREATININE FOR GFR 0.87 MG/DL (0.70-1.30); GLOMERULAR FILTRATION RATE > 60.0 (>60); GLUCOSE, FASTING 95 MG/DL (70-100); LIPASE 191 U/L (73-393); POTASSIUM SERUM 4.3 MEQ/L (3.5-5.1); SODIUM LEVEL 141 MEQ/L (136-145); TOTAL PROTEIN 7.5 GM/DL (6.4-8.2)
[2020-04-11 04:37] VITALS: BP 112/75
== END 2020-04-11 05:06 | disposition home or self-care (01) ==
LOC: M ED 01:37
DX: R10.13 Epigastric pain (principal); K21.9 Gastro-esophageal reflux disease without esophagitis; F15.10 Other stimulant abuse, uncomplicated; F17.200 Nicotine dependence, unspecified, uncomplicated; Z88.0 Allergy status to penicillin

== ENCOUNTER → 2020-04-17 | Outpatient (CLI) | payer MEDICAID | LOC: M OUTALCOH 12:48 | PROVIDERS: ATTEND Psychiatry & Neurology Psychiatry | DX: F15.20 Other stimulant dependence, uncomplicated (principal); F12.20 Cannabis dependence, uncomplicated ==

== ENCOUNTER → 2020-05-01 | Outpatient (REF) | payer MEDICAID ==
[2020-05-01 18:40] LABS: BASO # 0.1 10^3/uL (0.0-0.2); EOS # 0.2 10^3/uL (0.0-0.5); EOS % 2.8 % (0.0-3.0); HEMATOCRIT 46.6 % (42.0-52.0); LYMPH % 29.2 % (24.0-44.0); MEAN CORPUSCULAR HEMOGLOBIN 30.9 pg (27.0-33.0); MEAN CORPUSCULAR HGB CONC 32.2 g/dl (32.0-36.5); MEAN CORPUSCULAR VOLUME 96.1 fl (80.0-96.0); MONO # 0.6 10^3/uL (0.0-0.8); MONO % 8.6 % (0.0-5.0); NEUTROPHILS % 58.1 % (36.0-66.0); PLATELET COUNT, AUTOMATED 461 10^3/uL (150-450); RED BLOOD COUNT 4.85 10^6/uL (4.30-6.10); WHITE BLOOD COUNT 6.9 10^3/uL (4.0-10.0)
[2020-05-01 19:17] LABS: ALT/SGPT 33 U/L (12-78); BILIRUBIN,TOTAL 0.2 MG/DL (0.2-1.0); BLOOD UREA NITROGEN 10 MG/DL (7-18); CARBON DIOXIDE LEVEL 30 MEQ/L (21-32); CHLORIDE LEVEL 103 MEQ/L (98-107); CHOLESTEROL LEVEL 203 MG/DL (<200); CREATININE FOR GFR 0.86 MG/DL (0.70-1.30); GLOMERULAR FILTRATION RATE > 60.0 (>60); GLUCOSE, FASTING 85 MG/DL (70-100); HDL CHOLESTEROL 51 MG/DL (>40); LDL CHOLESTEROL 136 MG/DL (<100); NON-HDL-C 152 MG/DL; POTASSIUM SERUM 4.8 MEQ/L (3.5-5.1); SODIUM LEVEL 140 MEQ/L (136-145); THYROID STIMULATING HORMONE 0.641 uIU/ML (0.358-3.740); TRIGLYCERIDES LEVEL 79 MG/DL (<150)
[2020-05-01 20:38] LABS: HEMOGLOBIN A1c 5.4 %
== END ==
LOC: M LAB REF 16:54
PROVIDERS: ATTEND Physician Assistant
DX: K25.9 Gastric ulcer, unspecified as acute or chronic, without hemorrhage or perforation (principal); Z13.228 Encounter for screening for other metabolic disorders; Z13.220 Encounter for screening for lipoid disorders

== ENCOUNTER → 2020-05-08 | Outpatient (CLI) | payer OTHER | LOC: M LABSMTC 09:40 | PROVIDERS: ATTEND Pediatrics | DX: Z20.822 Contact with and (suspected) exposure to COVID-19 (principal) | CPT/HCPCS: C9803; U0003 ==

== ENCOUNTER 2020-05-18 10:00 | Outpatient (RCR) | payer MEDICAID | END 2020-05-21 | LOC: M OUTALCOH 10:00 | PROVIDERS: ATTEND Psychiatry & Neurology Psychiatry | DX: F15.20 Other stimulant dependence, uncomplicated (principal); F12.20 Cannabis dependence, uncomplicated; Z72.0 Tobacco use ==

== ENCOUNTER 2020-06-20 16:00 | Outpatient (RCR) | payer MEDICAID | END 2020-06-21 | LOC: M OUTALCOH 16:00 | PROVIDERS: ATTEND Psychiatry & Neurology Psychiatry | DX: F15.20 Other stimulant dependence, uncomplicated (principal); F12.20 Cannabis dependence, uncomplicated; Z72.0 Tobacco use ==

== ENCOUNTER 2020-07-18 16:00 | Outpatient (RCR) | payer MEDICAID | END 2020-07-21 | LOC: M OUTALCOH 16:00 | PROVIDERS: ATTEND Psychiatry & Neurology Psychiatry | DX: F15.20 Other stimulant dependence, uncomplicated (principal); F12.20 Cannabis dependence, uncomplicated; Z72.0 Tobacco use ==

== ENCOUNTER → 2020-07-22 | Outpatient (REF) | LOC: M LABSMTC 08:59 | PROVIDERS: ATTEND Anesthesiology | DX: Z01.812 Encounter for preprocedural laboratory examination (principal); Z11.52 Encounter for screening for COVID-19 ==

== ENCOUNTER 2020-07-26 07:03 | Day surgery (SDC) | payer OTHER ==
[~2020-07-26] VITALS: Ht 167.6 cm; Wt 71.1 kg
[~2020-07-26 07:03] MED LIST changes: +NS 1,000 ML IV ONE
[2020-07-26] MEDS ORDERED: propofoL 500 MG/50 ML VIAL As Ordered ONE (07:29)
[2020-07-26] MEDS ORDERED: fentaNYL 100 MCG/2 ML INJECTION (J3010) As Ordered ONE (07:29)
[2020-07-26] MEDS ORDERED: LIDOCAINE 2% 100MG/5ML SDV (FOR ANES.) As Ordered ONE (07:29)
[2020-07-26] MEDS ORDERED: OMEP40CA97 PO (07:35)
[2020-07-26] MEDS ORDERED: propofoL 200 MG/20 ML VIAL As Ordered ONE (09:04)
--- NOTE | 2020-07-26 09:13 | ROOR ---
Patient Name: Juliano Herman Procedure Date: 07/26/2020 8:29 AM Date of : 1985 Age: 35 Room: [facility] Gender: Male Note Status: Finalized Procedure: Upper GI endoscopy Indications: Epigastric abdominal pain, Pharyngeal phase dysphagia, Heartburn Providers: Teddy Ribeiro MD Referring MD: Jonny Bai Requesting Provider: Medicines: Monitored Anesthesia Care Complications: No immediate complications. Procedure: Pre-Anesthesia Assessment: - Prior to the procedure, a History and Physical was performed, and patient medications and allergies were reviewed. The patient is competent. The risks and benefits of the procedure and the sedation options and risks were discussed with the patient. All questions were answered and informed consent was obtained. Patient identification and proposed procedure were verified by the physician, the nurse and the gun perforator in the endoscopy suite. Mental Status Examination: alert and oriented. Airway Examination: normal oropharyngeal airway and neck mobility. Respiratory Examination: clear to auscultation. CV Examination: normal. Prophylactic Antibiotics: The patient does not require prophylactic antibiotics. Prior Anticoagulants: The patient has taken no previous anticoagulant or antiplatelet agents. ASA Grade Assessment: II - A patient with mild systemic disease. After reviewing the risks and benefits, the patient was deemed in satisfactory condition to undergo the procedure. The anesthesia plan was to use monitored anesthesia care (MAC). Immediately prior to administration of medications, the patient was re-assessed for adequacy to receive sedatives. The heart rate, respiratory rate, oxygen saturations, blood pressure, adequacy of pulmonary ventilation, and response to care were monitored throughout the procedure. The physical status of the patient was re-assessed after the procedure. The Endoscope was introduced through the mouth, and advanced to the second part of duodenum. The upper GI endoscopy was accomplished without difficulty. The patient tolerated the procedure well. Findings: There is no endoscopic evidence of stenosis, stricture or varices in the entire esophagus. One superficial esophageal ulcer with no bleeding and no stigmata of recent bleeding was found 34 to 37 cm from the incisors. The lesion was 2 mm in largest dimension. Biopsies were taken with a cold forceps for histology. Estimated blood loss was minimal. A small amount of food (residue) was found in the gastric fundus. Diffuse mildly erythematous mucosa without bleeding was found in the gastric body. This was biopsied with a cold forceps for histology. Estimated blood loss was minimal. The first portion of the duodenum and second portion of the duodenum were normal. Impression: - Non-bleeding esophageal ulcer. Biopsied. - A small amount of food (residue) in the stomach. - Erythematous mucosa in the gastric body. Biopsied. - Normal first portion of the duodenum and second portion of the duodenum. Recommendation: - Discharge patient to home (ambulatory). - Use Prilosec (omeprazole) 40 mg PO BID for 6 weeks. - Use Reglan (metoclopramide) 10 mg PO TID for 6 weeks. Procedure Code(s): --- Professional --- 05927, Esophagogastroduodenoscopy, flexible, transoral; with biopsy, single or multiple Diagnosis Code(s): --- Professional --- K22.10, Ulcer of esophagus without bleeding K31.89, Other diseases of stomach and duodenum R10.13, Epigastric pain R13.13, Dysphagia, pharyngeal phase R12, Heartburn CPT copyright 2019 [employer]. All rights reserved. The codes documented in this report are preliminary and upon logger driving horses review may be revised to meet current compliance requirements. Teddy Ribeiro MD Teddy Ribeiro MD 07/26/2020 9:13:24 AM Electronically signed by Teddy Ribeiro MD Number of Addenda: 0 Note Initiated On: 07/26/2020 8:29 AM Estimated Blood Loss: Estimated blood loss was minimal.
[2020-07-26 09:35] VITALS: BP 128/87
== END 2020-07-26 09:42 | disposition home or self-care (01) ==
LOC: M OPP 07:03
PROVIDERS: ATTEND Surgery
DX: K22.10 Ulcer of esophagus without bleeding (principal); K31.89 Other diseases of stomach and duodenum; R13.10 Dysphagia, unspecified; F17.210 Nicotine dependence, cigarettes, uncomplicated; Z79.899 Other long term (current) drug therapy; Z88.0 Allergy status to penicillin
CPT/HCPCS: 43239; 88305; J3010

== ENCOUNTER 2020-08-16 13:49 | Outpatient (RCR) | payer MEDICAID ==
[~2020-08-16 13:49] MED LIST changes: -NS 1,000 ML IV ONE; +OMEP40CA97 PO
== END 2020-08-21 ==
LOC: M OUTALCOH 13:49
PROVIDERS: ATTEND Psychiatry & Neurology Psychiatry
DX: F15.20 Other stimulant dependence, uncomplicated (principal); F12.20 Cannabis dependence, uncomplicated; Z72.0 Tobacco use

== ENCOUNTER 2020-08-28 11:22 | Emergency (ER) | payer MEDICAID ==
[~2020-08-28] VITALS: Ht 167.6 cm; Wt 68.8 kg
[2020-08-28 11:22] VITALS: BP 138/91
== END 2020-08-28 12:15 | disposition left against medical advice (07) ==
LOC: M ED 11:22
DX: Z53.21 Procedure and treatment not carried out due to patient leaving prior to being seen by health care provider (principal)

== ENCOUNTER 2020-08-30 12:40 | Emergency (ER) | payer MEDICAID ==
[~2020-08-30] VITALS: Ht 170.2 cm; Wt 72.7 kg
[2020-08-30 12:40] VITALS: BP 125/76
== END 2020-08-30 15:45 | disposition left against medical advice (07) ==
LOC: M ED 12:40
DX: Z53.21 Procedure and treatment not carried out due to patient leaving prior to being seen by health care provider (principal)

== ENCOUNTER 2020-09-07 14:12 | Emergency (ER) | payer MEDICAID ==
[~2020-09-07] VITALS: Ht 170.2 cm; Wt 75.0 kg
[2020-09-07 14:12] VITALS: BP 131/80
[~2020-09-07 14:12] MED LIST changes: +OMEP40CA4 PO; -OMEP40CA97 PO
== END 2020-09-07 16:37 | disposition left against medical advice (07) ==
LOC: M ED 14:12
DX: Z53.21 Procedure and treatment not carried out due to patient leaving prior to being seen by health care provider (principal)

== ENCOUNTER 2020-09-19 09:00 | Outpatient (RCR) | payer MEDICAID | END 2020-09-20 | LOC: M OUTALCOH 09:00 | PROVIDERS: ATTEND Psychiatry & Neurology Psychiatry | DX: F15.20 Other stimulant dependence, uncomplicated (principal); F12.20 Cannabis dependence, uncomplicated; Z72.0 Tobacco use ==

== ENCOUNTER 2020-10-18 12:00 | Outpatient (RCR) | payer MEDICAID | END 2020-10-21 | LOC: M OUTALCOH 12:00 | PROVIDERS: ATTEND Psychiatry & Neurology Psychiatry | DX: F15.20 Other stimulant dependence, uncomplicated (principal); F12.20 Cannabis dependence, uncomplicated; Z72.0 Tobacco use ==

== ENCOUNTER 2020-11-20 14:00 | Outpatient (RCR) | payer MEDICAID ==
[~2020-11-20 14:00] MED LIST changes: -CLIN150C15 PO; +CLIN150C17 PO
== END 2020-11-21 ==
LOC: M OUTALCOH 14:00
PROVIDERS: ATTEND Psychiatry & Neurology Psychiatry
DX: F15.20 Other stimulant dependence, uncomplicated (principal); F12.20 Cannabis dependence, uncomplicated; Z72.0 Tobacco use

== ENCOUNTER 2020-12-18 14:00 | Outpatient (RCR) | payer MEDICAID | END 2020-12-21 | LOC: M OUTALCOH 14:00 | PROVIDERS: ATTEND Psychiatry & Neurology Psychiatry | DX: F15.20 Other stimulant dependence, uncomplicated (principal); F12.20 Cannabis dependence, uncomplicated; Z72.0 Tobacco use ==

== ENCOUNTER 2021-01-12 13:14 | Outpatient (RCR) | payer MEDICAID | END 2021-01-21 | LOC: M OUTALCOH 13:14 | PROVIDERS: ATTEND Psychiatry & Neurology Psychiatry | DX: F15.20 Other stimulant dependence, uncomplicated (principal); F12.20 Cannabis dependence, uncomplicated; Z72.0 Tobacco use ==

== ENCOUNTER 2021-03-07 14:06 | Outpatient (RCR) | payer MEDICAID | END 2021-03-23 | LOC: M OUTALCOH 14:06 | PROVIDERS: ATTEND Psychiatry & Neurology Psychiatry | DX: F15.20 Other stimulant dependence, uncomplicated (principal); F12.20 Cannabis dependence, uncomplicated; Z72.0 Tobacco use ==

== ENCOUNTER → 2021-04-23 | Outpatient (RCR) | payer MEDICAID | LOC: M OUTALCOH 13:37 | PROVIDERS: ATTEND Psychiatry & Neurology Psychiatry | DX: F15.20 Other stimulant dependence, uncomplicated (principal); F12.20 Cannabis dependence, uncomplicated; Z72.0 Tobacco use ==

== ENCOUNTER → 2021-05-02 | Outpatient (REF) | LOC: M PLAIMG 11:36 | PROVIDERS: ATTEND Internal Medicine | DX: M54.59 Other low back pain (principal) ==

== ENCOUNTER 2021-05-07 13:16 | Outpatient (RCR) | payer MEDICAID | END 2021-05-21 | LOC: M OUTALCOH 13:16 | PROVIDERS: ATTEND Psychiatry & Neurology Psychiatry | DX: F15.20 Other stimulant dependence, uncomplicated (principal); F12.20 Cannabis dependence, uncomplicated; Z72.0 Tobacco use ==

== ENCOUNTER 2021-06-29 14:31 | Outpatient (RCR) | payer MEDICAID | END 2021-07-21 | LOC: M OUTALCOH 14:31 | PROVIDERS: ATTEND Psychiatry & Neurology Psychiatry | DX: F15.20 Other stimulant dependence, uncomplicated (principal); F12.20 Cannabis dependence, uncomplicated; Z72.0 Tobacco use ==

== ENCOUNTER 2022-07-07 20:08 | Emergency (ER) | payer MEDICAID ==
[~2022-07-07] VITALS: Ht 167.6 cm; Wt 67.7 kg
[2022-07-07 20:09] VITALS: BP 111/69
== END 2022-07-07 22:15 | disposition left against medical advice (07) ==
LOC: M ED 20:08
DX: Z53.21 Procedure and treatment not carried out due to patient leaving prior to being seen by health care provider (principal)

== ENCOUNTER → 2022-11-08 | Outpatient (REF) | payer MEDICAID ==
[2022-11-08 17:19] LABS: ALBUMIN 4.2 G/DL (3.2-5.2); ALKALINE PHOSPHATASE 66 U/L (46-116); ALT/SGPT 31 U/L (7.0-40); AST/SGOT 23 U/L (<34); BILIRUBIN,TOTAL 0.6 MG/DL (0.3-1.2); BLOOD UREA NITROGEN 14 MG/DL (9-23); CALCIUM LEVEL 9.9 MG/DL (8.5-10.1); CARBON DIOXIDE LEVEL 28 MMOL/L (20-31); CHLORIDE LEVEL 106 MMOL/L (98-107); CHOLESTEROL LEVEL 220 MG/DL (<200); CHOLESTEROL RISK RATIO 5.01 (<5); CREATININE FOR GFR 0.96 MG/DL (0.70-1.30); GLOMERULAR FILTRATION RATE > 60.0 (>60); GLUCOSE, FASTING 74 MG/DL (60-100); HDL CHOLESTEROL 43.9 MG/DL (>40); LDL CHOLESTEROL 154.9 MG/DL (<100); NON-HDL-C 176.1 MG/DL; POTASSIUM SERUM 4.5 MMOL/L (3.5-5.1); SODIUM LEVEL 141 MMOL/L (136-145); TRIGLYCERIDES LEVEL 106 MG/DL (<150)
[2022-11-08 17:21] LABS: THYROID STIMULATING HORMONE 1.308 uIU/ML (0.55-4.78); TOTAL 25(OH) VITAMIN D 29.5 NG/ML (20.0-100.0)
== END ==
LOC: M LAB REF 16:13
PROVIDERS: ATTEND Pediatrics
DX: F41.0 Panic disorder [episodic paroxysmal anxiety] (principal); E78.5 Hyperlipidemia, unspecified; E55.9 Vitamin D deficiency, unspecified

== ENCOUNTER 2023-06-13 17:19 | Emergency (ER) | payer MEDICAID, OTHER, SELFPAY ==
[~2023-06-13] VITALS: Ht 170.2 cm; Wt 71.5 kg
[2023-06-13 17:20] VITALS: BP 130/83; TEMP 98; O2SAT 97
[2023-06-13] MEDS ORDERED: ACET-683 PO (17:27)
[2023-06-13 18:37] LABS: RSV AMPLIFICATION NEGATIVE (NEGATIVE)
== END 2023-06-13 18:25 | disposition left against medical advice (07) ==
LOC: M ED 17:19
DX: Z53.21 Procedure and treatment not carried out due to patient leaving prior to being seen by health care provider (principal)

== ENCOUNTER 2023-07-18 08:56 | Emergency (ER) | payer MEDICAID, OTHER, SELFPAY ==
[~2023-07-18] VITALS: Ht 167.6 cm; Wt 72.9 kg
[~2023-07-18 08:56] MED LIST changes: -ATOR40TA75 PO; -PANT40TA29 PO; -SUCR1TA PO
[2023-07-18 08:57] VITALS: BP 171/92; TEMP 96.8; O2SAT 98
[2023-07-19] MEDS ORDERED: SUCR1TA PO (11:20)
[2023-07-19] MEDS ORDERED: ATOR40TA75 PO (11:20)
[2023-07-19] MEDS ORDERED: PANT40TA29 PO (11:20)
== END 2023-07-18 09:51 | disposition home or self-care (01) ==
LOC: M ED 08:56
DX: B07.0 Plantar wart (principal); F90.9 Attention-deficit hyperactivity disorder, unspecified type; Z88.0 Allergy status to penicillin

== ENCOUNTER → 2023-07-18 | Outpatient (REF) | payer OTHER ==
[~2023-07-18] MED LIST changes: +ACET-683 PO; +ATOR40TA75 PO; +PANT40TA29 PO; +SUCR1TA PO
[2023-07-18 17:53] LABS: BASO # 0.1 10^3/uL (0.0-0.2); BASO % 1.3 % (0.0-1.0); EOS # 0.2 10^3/uL (0.0-0.5); EOS % 3.2 % (0.0-3.0); HEMATOCRIT 48.5 % (42.0-52.0); HEMOGLOBIN 16.5 g/dl (13.5-17.5); LYMPH # 2.6 10^3/uL (1.5-5.0); LYMPH % 34.7 % (24.0-44.0); MEAN CORPUSCULAR HEMOGLOBIN 31.4 pg (27.0-33.0); MEAN CORPUSCULAR VOLUME 92.2 fl (80.0-96.0); MONO # 0.7 10^3/uL (0.0-0.8); MONO % 9.8 % (2.0-8.0); NEUTROPHILS # 3.8 10^3/uL (1.5-8.5); NEUTROPHILS % 50.6 % (36.0-66.0); PLATELET COUNT, AUTOMATED 364 10^3/uL (150-450); RED BLOOD COUNT 5.26 10^6/uL (4.30-6.10); WHITE BLOOD COUNT 7.6 10^3/uL (4.0-10.0)
[2023-07-18 18:02] LABS: ALBUMIN 4.2 G/DL (3.2-5.2); ALKALINE PHOSPHATASE 72 U/L (46-116); ALT/SGPT 25 U/L (7.0-40); AST/SGOT 18 U/L (<34); BILIRUBIN,TOTAL 0.6 MG/DL (0.3-1.2); BLOOD UREA NITROGEN 14 MG/DL (9-23); CARBON DIOXIDE LEVEL 30 MMOL/L (20-31); CHLORIDE LEVEL 104 MMOL/L (98-107); CREATININE FOR GFR 0.84 MG/DL (0.70-1.30); GLOMERULAR FILTRATION RATE > 60.0 (>60); GLUCOSE, FASTING 70 MG/DL (60-100); POTASSIUM SERUM 4.9 MMOL/L (3.5-5.1); SODIUM LEVEL 138 MMOL/L (136-145)
== END ==
LOC: M LAB REF 16:35
PROVIDERS: ATTEND Pediatrics
DX: K29.70 Gastritis, unspecified, without bleeding (principal)

== ENCOUNTER 2023-07-19 11:13 | Emergency (ER) | payer OTHER ==
[~2023-07-19] VITALS: Ht 167.6 cm; Wt 73.0 kg
[2023-07-19] MEDS ORDERED: ATOR40TA75 PO (11:20)
[2023-07-19] MEDS ORDERED: SUCR1TA PO (11:20)
[2023-07-19] MEDS ORDERED: PANT40TA29 PO (11:20)
[2023-07-19] MEDS: MAALOX 30 ML SUSP *UDC PO ONE (12:10)
[2023-07-19] MEDS: LIDOCAINE VISCOUS 2% SOLN 15ML UDC PO ONE (12:10)
[2023-07-19 13:31] VITALS: BP 143/88; TEMP 97.6; O2SAT 99
== END 2023-07-19 13:21 | disposition home or self-care (01) ==
LOC: M ED 11:13
DX: K29.00 Acute gastritis without bleeding (principal); R06.4 Hyperventilation; F17.200 Nicotine dependence, unspecified, uncomplicated; Z88.0 Allergy status to penicillin; Z79.1 Long term (current) use of non-steroidal anti-inflammatories (NSAID); Z79.02 Long term (current) use of antithrombotics/antiplatelets; Z79.810 Long term (current) use of selective estrogen receptor modulators (SERMs); Z79.899 Other long term (current) drug therapy

== ENCOUNTER → 2023-07-21 | Outpatient (REF) | payer OTHER ==
[~2023-07-21] MED LIST changes: +ATOR40TA75 PO; +PANT40TA29 PO; +SUCR1TA PO
== END ==
LOC: M LAB REF 09:40
PROVIDERS: ATTEND Pediatrics
DX: K29.70 Gastritis, unspecified, without bleeding (principal)

== ENCOUNTER 2023-08-29 09:51 | Emergency (ER) | payer OTHER ==
[~2023-08-29] VITALS: Ht 167.6 cm; Wt 74.3 kg
[2023-08-29 11:29] LABS: HEMATOCRIT 48.3 % (42.0-52.0); HEMOGLOBIN 16.6 g/dl (13.5-17.5); MEAN CORPUSCULAR HEMOGLOBIN 31.7 pg (27.0-33.0); MEAN CORPUSCULAR HGB CONC 34.4 g/dl (32.0-36.5); MEAN CORPUSCULAR VOLUME 92.4 fl (80.0-96.0); PLATELET COUNT, AUTOMATED 297 10^3/uL (150-450); RED BLOOD COUNT 5.23 10^6/uL (4.30-6.10)
[2023-08-29 11:41] LABS: LIPASE 31 U/L (12-53)
[2023-08-29 11:43] LABS: ALKALINE PHOSPHATASE 79 U/L (46-116); ALT/SGPT 43 U/L (7.0-40); AST/SGOT 16 U/L (<34); BILIRUBIN,DIRECT 0.1 MG/DL (<0.4); BILIRUBIN,TOTAL 0.5 MG/DL (0.3-1.2); BLOOD UREA NITROGEN 16 MG/DL (9-23); CALCIUM LEVEL 9.9 MG/DL (8.5-10.1); CARBON DIOXIDE LEVEL 28 MMOL/L (20-31); CHLORIDE LEVEL 107 MMOL/L (98-107); CREATININE FOR GFR 0.83 MG/DL (0.70-1.30); GLOMERULAR FILTRATION RATE > 60.0 (>60); GLUCOSE, FASTING 92 MG/DL (60-100); POTASSIUM SERUM 4.7 MMOL/L (3.5-5.1); SODIUM LEVEL 139 MMOL/L (136-145)
[2023-08-29 12:18] LABS: ATYPICAL LYMPH 22 % (0-5); BASOPHILS 1 % (0-1); EOSINOPHILS 2 % (0-3); LYMPHOCYTES 25 % (16-44); MONOCYTES 3 % (0-5); NEUTROPHILS 47 % (28-66)
[2023-08-29 12:19] LABS: PLATELET ESTIMATE NORMAL (NORMAL)
[2023-08-29 12:52] VITALS: BP 134/81; TEMP 98.4; O2SAT 99
[2023-08-29] MEDS ORDERED: CARA1TAB6 PO (13:44)
[2023-08-29] MEDS ORDERED: PROT1TAB2 PO (13:44)
== END 2023-08-29 13:50 | disposition left against medical advice (07) ==
LOC: M ED 09:51
DX: R10.12 Left upper quadrant pain (principal); F17.200 Nicotine dependence, unspecified, uncomplicated; F12.10 Cannabis abuse, uncomplicated; F90.9 Attention-deficit hyperactivity disorder, unspecified type; Z79.810 Long term (current) use of selective estrogen receptor modulators (SERMs); Z79.899 Other long term (current) drug therapy; Z88.0 Allergy status to penicillin; Z53.9 Procedure and treatment not carried out, unspecified reason

== ENCOUNTER 2023-12-14 09:36 | Emergency (ER) | payer OTHER ==
[~2023-12-14] VITALS: Ht 167.6 cm; Wt 77.1 kg
[~2023-12-14 09:36] MED LIST changes: +CARA1TAB6 PO; +PROT1TAB2 PO
[2023-12-14 09:39] VITALS: BP 159/98; TEMP 98.6; O2SAT 96
[2023-12-15] MEDS ORDERED: FLON1SPR NARES (08:11)
[2023-12-15] MEDS ORDERED: MUCI1TAB16 PO (08:11)
[2023-12-15] MEDS ORDERED: CLAR10CA3 PO (08:11)
[2023-12-15] MEDS ORDERED: VENTAER INH (08:58)
== END 2023-12-14 09:50 | disposition left against medical advice (07) ==
LOC: M ED 09:36
DX: Z53.21 Procedure and treatment not carried out due to patient leaving prior to being seen by health care provider (principal)

== ENCOUNTER 2023-12-15 05:38 | Emergency (ER) | payer OTHER ==
[~2023-12-15] VITALS: Ht 167.6 cm; Wt 76.8 kg
[2023-12-15] MEDS ORDERED: MUCI1TAB16 PO (08:11)
[2023-12-15] MEDS ORDERED: CLAR10CA3 PO (08:11)
[2023-12-15] MEDS ORDERED: FLON1SPR NARES (08:11)
[2023-12-15 08:55] VITALS: BP 126/88; TEMP 98.8; O2SAT 98
[2023-12-15] MEDS ORDERED: VENTAER INH (08:58)
== END 2023-12-15 08:58 | disposition home or self-care (01) ==
LOC: M ED 05:38
DX: J00 Acute nasopharyngitis [common cold] (principal); F17.200 Nicotine dependence, unspecified, uncomplicated; Z88.0 Allergy status to penicillin; Z79.52 Long term (current) use of systemic steroids; Z79.899 Other long term (current) drug therapy

== ENCOUNTER 2024-03-13 09:53 | Emergency (ER) | payer OTHER ==
[~2024-03-13] VITALS: Ht 167.6 cm; Wt 79.8 kg
[~2024-03-13 09:53] MED LIST changes: +CLAR10CA3 PO; +MUCI1TAB16 PO; +VENTAER INH
[2024-03-13] MEDS: ONDANSETRON 4MG 2ML VIAL IV ONE (10:48)
[2024-03-13] MEDS: PANTOPRAZOLE 40MG VIAL IV ONE (10:48)
[2024-03-13 10:52] LABS: BASO # 0.1 10^3/uL (0.0-0.2); EOS # 0.2 10^3/uL (0.0-0.5); EOS % 1.8 % (0.0-3.0); HEMATOCRIT 48.1 % (42.0-52.0); HEMOGLOBIN 16.5 g/dl (13.5-17.5); LYMPH % 22.4 % (24.0-44.0); MEAN CORPUSCULAR HEMOGLOBIN 31.2 pg (27.0-33.0); MEAN CORPUSCULAR HGB CONC 34.3 g/dl (32.0-36.5); MEAN CORPUSCULAR VOLUME 90.9 fl (80.0-96.0); MONO # 0.8 10^3/uL (0.0-0.8); MONO % 8.6 % (2.0-8.0); NEUTROPHILS # 5.9 10^3/uL (1.5-8.5); NEUTROPHILS % 65.8 % (36.0-66.0); PLATELET COUNT, AUTOMATED 328 10^3/uL (150-450); RED BLOOD COUNT 5.29 10^6/uL (4.30-6.10)
[2024-03-13 11:16] LABS: LIPASE 27 U/L (12-53)
[2024-03-13 11:18] LABS: ALBUMIN 3.8 G/DL (3.2-5.2); ALKALINE PHOSPHATASE 75 U/L (40-129); ALT/SGPT 35 U/L (7.0-40); AST/SGOT 16 U/L (<34); BILIRUBIN,DIRECT 0.1 MG/DL (<0.4); BILIRUBIN,TOTAL 0.5 MG/DL (0.3-1.2); BLOOD UREA NITROGEN 14 MG/DL (9-23); CALCIUM LEVEL 9.9 MG/DL (8.5-10.1); CARBON DIOXIDE LEVEL 26 MMOL/L (20-31); CHLORIDE LEVEL 107 MMOL/L (98-107); GLOMERULAR FILTRATION RATE > 60.0 (>60); GLUCOSE, FASTING 98 MG/DL (60-100); POTASSIUM SERUM 4.5 MMOL/L (3.5-5.1); SODIUM LEVEL 140 MMOL/L (136-145); TOTAL PROTEIN 7.2 G/DL (5.7-8.2)
[2024-03-13] MEDS ORDERED: PROT1TAB2 PO (12:19)
[2024-03-13] MEDS ORDERED: ONDA-282 PO (12:19)
[2024-03-13 12:25] VITALS: BP 123/83; TEMP 97.3; O2SAT 98
== END 2024-03-13 12:26 | disposition home or self-care (01) ==
LOC: M ED 09:53
DX: K29.00 Acute gastritis without bleeding (principal); F41.9 Anxiety disorder, unspecified; F90.9 Attention-deficit hyperactivity disorder, unspecified type; F12.10 Cannabis abuse, uncomplicated; Z88.0 Allergy status to penicillin; Z79.52 Long term (current) use of systemic steroids; Z79.83 Long term (current) use of bisphosphonates; Z79.899 Other long term (current) drug therapy
CPT/HCPCS: 80048; 80076; 83690; 85025; 96374; 99284; J2405; J2470

== ENCOUNTER → 2024-04-05 | Outpatient (REF) | payer OTHER ==
[~2024-04-05] MED LIST changes: +ONDA-282 PO
[2024-04-05 13:22] LABS: BASO # 0.1 10^3/uL (0.0-0.2); BASO % 1.1 % (0.0-1.0); EOS # 0.2 10^3/uL (0.0-0.5); EOS % 1.8 % (0.0-3.0); HEMOGLOBIN 17.1 g/dl (13.5-17.5); LYMPH # 2.3 10^3/uL (1.5-5.0); LYMPH % 27.8 % (24.0-44.0); MEAN CORPUSCULAR HEMOGLOBIN 30.8 pg (27.0-33.0); MEAN CORPUSCULAR HGB CONC 34.2 g/dl (32.0-36.5); MEAN CORPUSCULAR VOLUME 90.1 fl (80.0-96.0); MONO # 0.7 10^3/uL (0.0-0.8); MONO % 8.4 % (2.0-8.0); NEUTROPHILS # 5.1 10^3/uL (1.5-8.5); NEUTROPHILS % 60.8 % (36.0-66.0); PLATELET COUNT, AUTOMATED 375 10^3/uL (150-450); RED BLOOD COUNT 5.55 10^6/uL (4.30-6.10); WHITE BLOOD COUNT 8.4 10^3/uL (4.0-10.0)
== END ==
LOC: M LAB REF 12:31
PROVIDERS: ATTEND Student in an Organized Health Care Education/Training Program
DX: R19.5 Other fecal abnormalities (principal)

== ENCOUNTER → 2024-04-06 | Outpatient (REF) | payer OTHER | LOC: M LAB REF 09:56 | PROVIDERS: ATTEND Student in an Organized Health Care Education/Training Program | DX: R19.5 Other fecal abnormalities (principal) ==

== ENCOUNTER 2024-05-10 18:02 | Emergency (ER) | payer OTHER, SELFPAY ==
[2024-05-11] MEDS ORDERED: METH-1164 PO (12:33)
[2024-05-11] MEDS ORDERED: NAPR-837 PO (12:33)
== END 2024-05-10 20:28 | disposition left against medical advice (07) ==
LOC: M ED 18:02
DX: Z53.21 Procedure and treatment not carried out due to patient leaving prior to being seen by health care provider (principal)

== ENCOUNTER 2024-05-11 06:17 | Emergency (ER) | payer OTHER, SELFPAY ==
[~2024-05-11] VITALS: Ht 167.6 cm; Wt 81.8 kg
[2024-05-11] MEDS: KETOROLAC 30 MG/ML 1ML VIAL IV ONE (09:18)
[2024-05-11] MEDS: METHOCARBAMOL 1,000 MG/10 ML VIAL IV ONE (09:19)
[2024-05-11] MEDS: MORPHINE 4 MG/ML 1ML VIAL IV ONE (11:26)
[2024-05-11] MEDS ORDERED: NAPR-837 PO (12:33)
[2024-05-11] MEDS ORDERED: METH-1164 PO (12:33)
[2024-05-11 12:42] VITALS: BP 130/82; TEMP 97.9; O2SAT 97
== END 2024-05-11 13:00 | disposition home or self-care (01) ==
LOC: EDBD 06:17 → M ED 06:17
DX: M62.830 Muscle spasm of back (principal); F17.200 Nicotine dependence, unspecified, uncomplicated; F12.10 Cannabis abuse, uncomplicated; Z79.899 Other long term (current) drug therapy; Z88.0 Allergy status to penicillin
CPT/HCPCS: 72110; 72148; 96374; 96375; 99284; J1100; J1885; J2800

== ENCOUNTER 2024-06-09 08:13 | Day surgery (SDC) | payer OTHER ==
[~2024-06-09] VITALS: Ht 167.6 cm; Wt 75.9 kg
[~2024-06-09 08:13] MED LIST changes: +FAMO40TA3 PO; +HYDR-3363 PO; +METH-1164 PO; +NAPR-837 PO
[2024-06-09 08:48] VITALS: TEMP 97.2
[2024-06-09 09:17] VITALS: BP 134/87; O2SAT 99
[2024-06-09] MEDS ORDERED: LIDOCAINE 2% 100MG/5ML SDV (FOR ANES.) As Ordered ONE (13:49)
[2024-06-09] MEDS ORDERED: propofoL 200 MG/20 ML VIAL As Ordered ONE (13:49)
== END 2024-06-09 09:23 | disposition home or self-care (01) ==
LOC: M OPP 08:13
PROVIDERS: ATTEND Surgery
DX: K29.50 Unspecified chronic gastritis without bleeding (principal); K44.9 Diaphragmatic hernia without obstruction or gangrene; K31.89 Other diseases of stomach and duodenum; K22.89 Other specified disease of esophagus; R10.13 Epigastric pain; G47.30 Sleep apnea, unspecified; Z79.51 Long term (current) use of inhaled steroids; Z79.899 Other long term (current) drug therapy; F17.210 Nicotine dependence, cigarettes, uncomplicated

== ENCOUNTER → 2024-07-13 | Outpatient (CLI) | payer OTHER ==
[~2024-07-13] MED LIST changes: +ISOVUE-370 76% 100ML VIAL ONE
== END ==
LOC: M PLAIMG 09:44
PROVIDERS: ATTEND Surgery
DX: R10.9 Unspecified abdominal pain (principal)

== ENCOUNTER → 2025-03-02 | Outpatient (REF) | payer OTHER ==
[~2025-03-02] MED LIST changes: -ISOVUE-370 76% 100ML VIAL ONE
[2025-03-02 18:33] LABS: BASO # 0.1 10^3/uL (0.0-0.2); BASO % 1.2 % (0.0-1.0); EOS # 0.2 10^3/uL (0.0-0.5); EOS % 2.8 % (0.0-3.0); LYMPH # 2.8 10^3/uL (1.5-5.0); LYMPH % 35.7 % (24.0-44.0); MONO # 0.9 10^3/uL (0.0-0.8); MONO % 11.3 % (2.0-8.0); NEUTROPHILS # 3.8 10^3/uL (1.5-8.5); NEUTROPHILS % 48.7 % (36.0-66.0); PLATELET COUNT, AUTOMATED 393 10^3/uL (150-450)
[2025-03-02 19:19] LABS: ALT/SGPT 50 U/L (7.0-40); AST/SGOT 34 U/L (<34); CALCIUM LEVEL 9.8 MG/DL (8.5-10.1); CARBON DIOXIDE LEVEL 25 MMOL/L (20-31); CHLORIDE LEVEL 108 MMOL/L (98-107); CHOLESTEROL LEVEL 309 MG/DL (<200); CHOLESTEROL RISK RATIO 7.72 (<5); CREATININE FOR GFR 0.95 MG/DL (0.70-1.30); GLOMERULAR FILTRATION RATE > 90.0 (>60); LDL CHOLESTEROL 229.8 MG/DL (<100); NON-HDL-C 269.0 MG/DL; POTASSIUM SERUM 5.2 MMOL/L (3.5-5.1); SODIUM LEVEL 141 MMOL/L (136-145); TRIGLYCERIDES LEVEL 196 MG/DL (<150)
== END ==
LOC: M LAB REF 17:28
PROVIDERS: ATTEND Pediatrics
DX: E78.5 Hyperlipidemia, unspecified (principal); R05.3 Chronic cough

== ENCOUNTER → 2025-03-03 | Outpatient (CLI) | payer OTHER | LOC: M RAD 11:44 | PROVIDERS: ATTEND Pediatrics | DX: R05.3 Chronic cough (principal) ==